=== PATIENT | female | born 1935 | race Caucasian/White ===

== ENCOUNTER 2016-10-13 17:46 | Emergency (ER) | payer MEDICARE, OTHER ==
[2016-10-13 18:27] VITALS: BP 159/85
[2016-10-13] MEDS ORDERED: Cyclobenzaprine 10 MG Tab PO ONE (18:37)
[2016-10-13] MEDS ORDERED: Acetaminophen/HYDROcodone 325-5 MG Tab PO ONE (18:37)
--- NOTE | 2016-10-13 18:54 | EDM.PDOC ---
ED HPI GENERAL MEDICAL PROBLEM - General Chief Complaint: Back Pain or Injury Stated Complaint: BACK PAIN Time Seen by Provider: 10/13/16 18:30 Source of Information: Reports: Patient History Limitations: Reports: No Limitations - History of Present Illness INITIAL COMMENTS - FREE TEXT/NARRATIVE: The patient presents with low back pain. She has a compression fracture of one of her lumbar spine. She saw Dr Dey and he put her in a back brace. She has been wearing the brace. She went to [place] to see family and the pain got much worse. She cannot even get out of her bath without help. She denies any numbness or weakness in her legs. She has no nausea or vomiting. She has no bowel or bladder problems. Onset: Gradual Duration: Week(s): Location: Reports: Back (Lumbar spine) Quality: Reports: Sharp Severity: Severe Improves with: Reports: None Worsens with: Reports: Movement Treatments COMPLIANCE PARALEGAL: Reports: Other (see below) Other Treatments COMPLIANCE PARALEGAL: tylenol and motrin Middle Back Pain Score (Numeric/FACES): 7 - Related Data Allergies Allergy/AdvReac Type Severity Reaction Status Date / Time No Known Allergies Allergy Verified 10/13/16 18:54 Home Meds: Home Meds Cyclobenzaprine [Flexeril] 10 mg PO TID PRN #20 tablet 10/13/16 [Rx] Hydrocodone/Acetaminophen [Hydrocodon-Acetaminophen 5-325] 1 - 2 each PO Q6HR PRN #20 tablet 10/13/16 [Rx] ED ROS GENERAL - Review of Systems Review Of Systems: See Below Constitutional: Reports: No Symptoms HEENT: Reports: No Symptoms Respiratory: Reports: No Symptoms Cardiovascular: Reports: No Symptoms Endocrine: Reports: No Symptoms GI/Abdominal: Reports: No Symptoms : Reports: No Symptoms Musculoskeletal: Reports: Back Pain (Lower) ED EXAM,LOWER BACK PAIN/INJURY - Physical Exam Exam: See Below Exam Limited By: No Limitations General Appearance: Alert, No Apparent Distress Ears: Normal External Exam Nose: Normal Inspection Head: Atraumatic, Normocephalic Neck: Normal Inspection Course - Vital Signs Last Recorded V/S: Last Vital Signs Temp 98.1 F 10/13/16 18:26 Pulse 70 10/13/16 18:26 Resp 20 10/13/16 18:26 BP 159/85 H 10/13/16 18:26 Pulse Ox 99 10/13/16 18:26 - Orders/Labs/Meds Meds: Medications Discontinued Medications Generic Name Dose Route Start Last Admin Trade Name Marcelino PRN Reason Stop Dose Admin Hydrocodone Bitart/Acetaminophen 2 tab 10/13/16 18:37 10/13/16 18:54 [place] 325-5 Mg PO 10/13/16 18:38 2 tab ONETIME ONE Administration Cyclobenzaprine HCl 10 mg 10/13/16 18:37 10/13/16 18:54 Flexeril PO 10/13/16 18:38 10 mg ONETIME ONE Administration - Re-Assessments/Exams Free Text/Narrative Re-Assessment/Exam: 10/13/16 19:30 I ordered hydrocodone 2 pills and flexeril. She feels better after that. I will give her a prescription for both. Departure - Departure Time of Disposition: 19:30 Disposition: Home, Self-Care 01 Condition: Good Clinical Impression: Compression fracture of lumbar vertebra Qualifiers: Encounter type: subsequent encounter Lumbar vertebra fracture level: L1 Fracture type: closed Fracture healing: with delayed healing Qualified Code(s): S32.010G - Wedge compression fracture of first lumbar vertebra, subsequent encounter for fracture with delayed healing - Discharge Information Prescriptions: Hydrocodone/Acetaminophen [Hydrocodon-Acetaminophen 5-325] 1 - 2 each PO Q6HR PRN #20 tablet PRN Reason: Pain Cyclobenzaprine [Flexeril] 10 mg PO TID PRN #20 tablet PRN Reason: Pain Referrals: Marsha Coronel MD [Primary Care Provider] - Forms: ED Department Discharge Additional Instructions: Take the hydrocodone and flexeril as needed for pain. Call Dr Yeung's office on Saturday and let him know how you are feeling. Please return if you are worse.
== END 2016-10-13 19:46 | disposition home or self-care (01) ==
LOC: JD.ED 17:46
DX: S32.010G Wedge compression fracture of first lumbar vertebra, subsequent encounter for fracture with delayed healing (principal); X58.XXXD Exposure to other specified factors, subsequent encounter
CPT/HCPCS: 99283; A9270

== ENCOUNTER 2020-01-02 11:32 | Emergency (ER) | payer MEDICARE, OTHER ==
[2020-01-02] MEDS ORDERED: Ketorolac 30 MG/ML SDV IM ONE (12:28)
--- NOTE | 2020-01-02 12:28 | EDM.PDOC ---
ED HPI GENERAL MEDICAL PROBLEM - General Chief Complaint: Back Pain or Injury Stated Complaint: BACK INJURY Time Seen by Provider: 01/02/20 12:12 Source of Information: Reports: Patient, RN Notes Reviewed History Limitations: Reports: No Limitations - History of Present Illness INITIAL COMMENTS - FREE TEXT/NARRATIVE: The patient is an 84-year-old female who presents to the ED for evaluation of her lower back pain. Patient notes she has been having low back pain for a good 3 weeks or more, she was seen on 25 December, and did get a medication prescription filled for [place] tablets by Dr. Ely for ongoing pain. She states that these medications make her feel very nauseated, and she does take them with food as well. She notes that when the pain is at its worst, she feels like she could be knocked over due to the pain. She states is very sharp intense pain, that comes and goes. She has been using a walker at home. She notes last night she did not sleep much due to the pain. She does have a history of multiple compression fractures with her nerve her spine, and she states she most recently had an MRI 2 weeks ago that showed new compression fractures. She is also complaining of urinary frequency, notes this has been going on for some time as well she is complaining of some suprapubic tenderness, but no fevers or chills, cough or shortness of breath. She is not on blood thinners at this time. 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 Lower Back Pain Score (Numeric/FACES): 8 - Related Data Allergies Allergy/AdvReac Type Severity Reaction Status Date / Time No Known Allergies Allergy Verified 09/28/18 10:25 Home Meds: Home Meds Hydrocodone/Acetaminophen [Hydrocodone-Acetamin 5-325 mg] 1 - 2 each PO Q6HR PRN #20 tablet 10/13/16 [Rx] FLUoxetine [PROzac] 20 mg PO DAILY 09/28/18 [History] Ferrous Sulfate 324 mg PO BIDMEALS #30 tab.ec 09/28/18 [Rx] atorvaSTATin [Lipitor] 10 mg PO DAILY 09/28/18 [History] Ibuprofen 600 mg PO Q6H #20 tablet 01/02/20 [Rx] Past Medical History HEENT History: Reports: Hard of Hearing, Impaired Vision Cardiovascular History: Reports: High Cholesterol Gastrointestinal History: Reports: Chronic Constipation Other Gastrointestinal History: use exlax prn Genitourinary History: Reports: Renal Calculus Musculoskeletal History: Reports: Back Pain, Chronic, Other (See Below) (multiple compression fractures in spine) Psychiatric History: Reports: Depression - Past Surgical History HEENT Surgical History: Reports: Cataract Surgery GI Surgical History: Reports: Appendectomy, Cholecystectomy Female Surgical History: Reports: Hysterectomy Social & Family History - Tobacco Use Tobacco Use Status *Q: Never Tobacco User - Caffeine Use Caffeine Use: Reports: Coffee, Tea - Recreational Drug Use Recreational Drug Use: No ED ROS GENERAL - Review of Systems Review Of Systems: Comprehensive ROS is negative, except as noted in HPI. ED EXAM,LOWER BACK PAIN/INJURY - Physical Exam Exam: See Below Exam Limited By: No Limitations General Appearance: Alert, WD/WN, No Apparent Distress Respiratory/Chest: No Respiratory Distress, Lungs Clear, Normal Breath Sounds, No Accessory Muscle Use, Chest Non-Tender Cardiovascular: Normal Peripheral Pulses, Regular Rate, Rhythm, No Murmur GI/Abdominal: Normal Bowel Sounds, Soft, No Distention, No Mass, Tender (mild suprapubic tenderness) Neurological: Alert, Normal Mood/Affect, Normal Dorsiflexion, Normal Plantar Flexion, No Motor/Sensory Deficits. No: Straight Leg Raise (L), Straight Leg Raise (R), Saddle Anesthesia Psychiatric: Normal Affect, Normal Mood Skin Exam: Warm, Dry, Intact, Normal Color, No Rash Course - Vital Signs Last Recorded V/S: Last Vital Signs Temp 98.1 F 01/02/20 12:06 Pulse 72 01/02/20 12:06 Resp 20 01/02/20 12:06 BP 140/62 01/02/20 12:06 Pulse Ox 98 01/02/20 12:06 - Orders/Labs/Meds Orders: Active Orders 24 hr Category Date Time Status Insert Lambert Catheter [Insert Urinary Catheter] [OM.PC] Care 01/02/20 12:30 Ordered Q24H Urinary Catheter Assessment [RC] ASDIRECTED Care 01/02/20 12:30 Active Labs: Laboratory Tests 01/02/20 Range/Units 12:40 Urine Color Yellow (Yellow) Urine Appearance Clear (Clear) Urine pH 6.0 (5.0-8.0) Ur Specific [place] 1.025 (1.005-1.030) Urine Protein Trace H (Negative) Urine Glucose (UA) Negative (Negative) Urine Ketones Trace H (Negative) Urine Occult Blood Negative (Negative) Urine Nitrite Negative (Negative) Urine Bilirubin Negative (Negative) Urine Urobilinogen 0.2 (0.2-1.0) Ur Leukocyte Esterase Negative (Negative) Urine RBC 0-5 (0-5) /hpf Urine WBC 0-5 (0-5) /hpf Ur Epithelial Cells 0-5 (0-5) /hpf Urine Bacteria Not seen (FEW) /hpf Urine Mucus Not seen (FEW) /hpf Meds: Medications Discontinued Medications Generic Name Dose Route Start Last Admin Trade Name Freq PRN Reason Stop Dose Admin Ketorolac Tromethamine 30 mg 01/02/20 12:28 01/02/20 12:45 Toradol IM 01/02/20 12:29 30 mg ONETIME ONE Administration - Re-Assessments/Exams Free Text/Narrative Re-Assessment/Exam: 01/02/20 12:30 Patient presents to the ED for her back pain. She is also complaining of urinary symptoms, we will get a quick cath urinary specimen to rule out the possibility of urinary tract infection that could be ongoing. I will give her a 30 mg IM injection of Toradol for initial pain management regarding her back pain. She does state that the hydrocodone seems to make her more nauseous and she cannot keep these down. 01/02/20 13:22 The patient notes that she has gotten some pain relief from the Toradol injection. Her urinalysis is negative for any infection. I will have nursing staff get her up at the bedside, to see how she is ambulating, plan is to hopefully send her home on some 600 mg tabs ibuprofen for further pain management as her body does not seem to do well with the [place] tablets that were provided to her. 01/02/20 13:44 Patient was at the bedside, and does appear to be walking quite a bit better, she states that it feels much better than it did when she walked in here. She will be discharged home with general recommendations and have her follow-up with her regular provider next week for reevaluation and further management. Departure - Departure Time of Disposition: 13:45 Disposition: Home, Self-Care 01 Condition: Good Clinical Impression: Low back pain Qualifiers: Chronicity: acute Back pain laterality: bilateral Sciatica presence: without sciatica Qualified Code(s): M54.5 - Low back pain - Discharge Information *PRESCRIPTION DRUG MONITORING PROGRAM REVIEWED*: No *COPY OF PRESCRIPTION DRUG MONITORING REPORT IN PATIENT AMANDA: No Prescriptions: Ibuprofen 600 mg PO Q6H #20 tablet Referrals: Marsha Coronel MD [Primary Care Provider] - Forms: ED Department Discharge Additional Instructions: You have been evaluated in the ED for your low back pain. Your urinalysis demonstrated no sign of acute infection. Please use ice/heat as tolerated to the affected area. You were given a script for ibuprofen 600mg q6 hrs for pain relief. Please do so until you have a tolerable level of pain with activity. Do not exceed 3200mg ibuprofen in a 24 hour time period. Recommend you follow-up with Dr. Ely, sometime next week, for reevaluation and to make sure that everything is getting better as expected. Please also make it known to her, that the [place] tablet she provided to you caused nausea and you are not able to tolerate these. Please return to ED if your symptoms should change or worsen. Sepsis Event Note (ED) - Evaluation Sepsis Screening Result: No Definite Risk - Focused Exam Vital Signs: Vital Signs Temp Pulse Resp BP Pulse Ox 01/02/20 12:06 98.1 F 72 20 140/62 98 - My Orders Last 24 Hours: My Active Orders 01/02/20 12:30 Insert Lambert Catheter [Insert Urinary Catheter] [OM.PC] Q24H Urinary Catheter Assessment [RC] ASDIRECTED - Assessment/Plan Last 24 Hours: My Active Orders 01/02/20 12:30 Insert Lambert Catheter [Insert Urinary Catheter] [OM.PC] Q24H Urinary Catheter Assessment [RC] ASDIRECTED
[2020-01-02 14:29] VITALS: BP 127/78; PULSE 88
== END 2020-01-02 14:25 | disposition home or self-care (01) ==
LOC: JD.ED 11:32
DX: M54.5 Low back pain (principal); R35.0 Frequency of micturition; R10.30 Lower abdominal pain, unspecified; E78.00 Pure hypercholesterolemia, unspecified; Z90.49 Acquired absence of other specified parts of digestive tract; Z90.710 Acquired absence of both cervix and uterus; Z79.899 Other long term (current) drug therapy
CPT/HCPCS: 81001; 96372; 99283; J1885

== ENCOUNTER 2020-01-12 16:05 | Emergency (ER) | payer MEDICARE, OTHER ==
[2020-01-12] MEDS ORDERED: Metoclopramide 10 MG/2 ML SDV IVPUSH ONE (16:29)
[2020-01-12] MEDS ORDERED: Dextrose 5%-0.9% NaCl 1,000 ML IV SCH ×3 (16:30→19:15)
--- NOTE | 2020-01-12 16:34 | EDM.PDOC ---
ED HPI GENERAL MEDICAL PROBLEM - General Chief Complaint: Back Pain or Injury Stated Complaint: VOMITING/DIARRHEA/BACK PAIN Time Seen by Provider: 01/12/20 16:28 Source of Information: Reports: Patient History Limitations: Reports: No Limitations - History of Present Illness INITIAL COMMENTS - FREE TEXT/NARRATIVE: 84-year-old female presents to the ED with complaints of recurrent nausea and vomiting starting yesterday. She states she has not kept anything down. Emesis is primarily bilious without any blood. Nausea comes in waves. Associated diffuse periumbilical abdominal cramping pain. She has a history of chronic constipation and continues to take laxatives on a daily basis. Current medications taken today likely did not stay down. Patient recently started a fe ntanyl 12 mcg/h patch which is on her left anterior lateral shoulder. She does not feel that the nausea started after the patch was placed. It has relieved a good deal of her back pain however. Pain apparently is due to multiple compression fractures and degenerative disc disease. Patient denies any associated fever or chills. Denies cough or sputum production. She does not know anybody with COVID-19 illness. Onset: Sudden Onset Date: 01/11/20 Duration: Hour(s):, Constant Location: Reports: Abdomen (She reports recurrent nausea and vomiting even water when she tries to drink.) Quality: Reports: Other (Intermittent cramping pain) Severity: Moderate (in the periumbilical area.) Improves with: Reports: None Worsens with: Reports: Eating Context: Denies: Activity, Exercise, Lifting, Sick Contact, Trauma, Other Associated Symptoms: Reports: Loss of Appetite, Malaise, Weakness. 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: Other (see below) Lower Back Pain Score (Numeric/FACES): 8 - Related Data Allergies Allergy/AdvReac Type Severity Reaction Status Date / Time No Known Allergies Allergy Verified 01/12/20 16:22 Home Meds: Home Meds FLUoxetine [PROzac] 20 mg PO DAILY 09/28/18 [History] Ferrous Sulfate 324 mg PO BIDMEALS #30 tab.ec 09/28/18 [Rx] atorvaSTATin [Lipitor] 10 mg PO DAILY 08/04/19 [History] Ibuprofen 600 mg PO Q6H #20 tablet 01/02/20 [Rx] fentaNYL [Duragesic] 1 patch TD Q72H 01/12/20 [History] traMADol [Ultram] 50 mg PO Q6H PRN 01/12/20 [History] Past Medical History HEENT History: Reports: Hard of Hearing, Impaired Vision Cardiovascular History: Reports: High Cholesterol Gastrointestinal History: Reports: Chronic Constipation Other Gastrointestinal History: use exlax prn Genitourinary History: Reports: Renal Calculus Musculoskeletal History: Reports: Back Pain, Chronic, Other (See Below) (multiple compression fractures in spine) Psychiatric History: Reports: Depression - Past Surgical History HEENT Surgical History: Reports: Cataract Surgery GI Surgical History: Reports: Appendectomy, Cholecystectomy Female Surgical History: Reports: Hysterectomy Social & Family History - Caffeine Use Caffeine Use: Reports: Coffee, Tea - Living Situation & Occupation Living situation: Reports: Occupation: Retired ED ROS GENERAL - Review of Systems Review Of Systems: See Below Constitutional: Reports: Malaise, Weakness, Fatigue, Decreased Appetite, Weight Loss. Denies: Fever, Chills HEENT: Reports: Glasses, Other (Does have a) Respiratory: Reports: Shortness of Breath ( bilateral mild macular de generation.). Denies: Wheezing, Pleuritic Chest Pain, Cough, Sputum Cardiovascular: Reports: Dyspnea on Exertion, Lightheadedness. Denies: Chest Pain, Blood Pressure Problem, Claudication, Edema, Orthopnea, Palpitations Endocrine: Reports: Fatigue GI/Abdominal: Reports: Decreased Appetite, Nausea, Vomiting (Since yesterday. Note this was the same time she started fentanyl patch 12 mcg/h. She is intolerant to oxycodone and hydrocodone tablets.) : Reports: Frequency, Incontinence (Both urge and stress components.) Musculoskeletal: Reports: Back Pain (Neck back pain with 3 identified compression fractures. Recent investigations by Dr. Gallo reveal that she has multiple myeloma by serum protein electrophoresis.) Skin: Reports: Dryness Neurological: Reports: Dizziness, Difficulty Walking (Walks with the aid of a walker.). Denies: Confusion Psychiatric: Reports: No Symptoms Hematologic/Lymphatic: Reports: No Symptoms Immunologic: Reports: No Symptoms ED EXAM, GI/ABD - Physical Exam Exam: See Below Exam Limited By: No Limitations General Appearance: Alert, No Apparent Distress, Other (Temperature is 36.2. Heart rate is 80 and sinus respiratory is 18 with O2 sats 100% room air BP 127/52.) Eyes: Bilateral: Normal Appearance (Blepharal pallor. No scleral icterus.) Throat/Mouth: Other Head: Atraumatic (Tongue is moderately dry and coated. No oropharyngeal infection), Normocephalic Neck: Normal Inspection, Supple, Non-Tender, Full Range of Motion. No: Lymphadenopathy (L), Lymphadenopathy (R) Respiratory/Chest: No Respiratory Distress, Normal Breath Sounds, No Accessory Muscle Use, Decreased Breath Sounds (Sounds are mildly diminished to the posterior 20% of lower lung [place].), Other (Mild kyphosis thoracic spine.). No: Respiratory Distress, Crackles, Rales, Wheezing Cardiovascular: Regular Rate, Rhythm, No Edema, No Gallop, No Murmur. No: Normal Peripheral Pulses GI/Abdominal Exam: Normal Bowel Sounds, Soft, Non-Tender, No Organomegaly, No Abnormal Bruit, No Mass, Pelvis Stable, Other (Full surgical scars. She appears to had a cholecystectomy appendectomy and total abdominal hysterectomy and she believes both ovaries were removed at the same time.). No: Guarding, Rigid, Rebound Back Exam: Decreased Range of Motion, Vertebral Tenderness (Will tenderness throughout the mid and lower thoracic spine), Other (Kyphosis thoracic spine.) Extremities: Normal Inspection, Other (Is slightly increased warmth to both medial joints of her knees and tenderness suggesting osteoarthritic change. Very limited internal and external rotation of either hip causing pain) Neurological: Alert ( combined with osteoarthritic change.), Oriented, CN II-XII Intact, Normal Cognition Psychiatric: Flat Affect Skin Exam: Warm, Dry, Intact, Pallor (Hiren pallid.) #1 Interpretation EKG Date: 01/12/20 Time: 16:52 Rhythm: NSR Rate (Beats/Min): 82 (Note there is a sinus pause appreciated in the long lead to limb with a heart rate of 47/min.) [place]: Normal P-Wave: Enlarged QRS: Other (Left atrial hypertrophy initial poor R wave progression from V1 to V4 consider possible old anteroseptal myocardial infarction. Decreased voltage limb leads) ST-T: Other (T wave flattening V2 nonspecific finding) QT: Normal EKG Interpretation Comments: Abnormal ECG Course - Vital Signs Last Recorded V/S: Last Vital Signs Temp 36.3 C 01/12/20 18:15 Pulse 81 01/12/20 18:18 Resp 16 01/12/20 18:18 BP 135/61 01/12/20 18:18 Pulse Ox 98 01/12/20 18:18 - Orders/Labs/Meds Orders: Active Orders 24 hr Category Date Time Status EKG Documentation Completion [RC] STAT Care 01/12/20 16:30 Active Insert Lambert Catheter [Insert Urinary Catheter] [OM.PC] Care 01/12/20 19:15 Ordered Q24H Insert Urinary Catheter [OM.PC] Stat Care 01/12/20 17:25 Ordered Urinary Catheter Assessment [RC] ASDIRECTED Care 01/12/20 17:29 Active Urinary Catheter Assessment [RC] ASDIRECTED Care 01/12/20 19:10 Ordered Abdomen 1V Flat [CR] Stat Exams 01/12/20 16:30 Taken Chest 1V Frontal [CR] Stat Exams 01/12/20 16:30 Taken CULTURE BLOOD [BC] Stat Lab 01/12/20 18:09 Received CULTURE BLOOD [BC] Stat Lab 01/12/20 18:19 Received CULTURE URINE [RM] Stat Lab 01/12/20 17:22 Received Dextrose 5%-0.9% NaCl [Dextrose 5%-Normal Saline] 1,000 Med 01/12/20 18:30 Active ml IV ASDIRECTED Dextrose 5%-0.9% NaCl [Dextrose 5%-Normal Saline] 1,000 Med 01/12/20 19:15 Ordered ml IV ASDIRECTED Blood Culture x2 Reflex Set [OM.PC] Stat Oth 01/12/20 17:41 Ordered Medication Orders Dextrose/Sodium Chloride (Dextrose 5%-Normal Saline) 1,000 mls @ 250 mls/hr IV ASDIRECTED CHIDI Dextrose/Sodium Chloride (Dextrose 5%-Normal Saline) 1,000 mls @ 999 mls/hr IV ASDIRECTED CHIDI Labs: Laboratory Tests 01/12/20 01/12/20 01/12/20 Range/Units 17:00 17:00 17:00 WBC 28.91 H (3.98-10.04) K/mm3 RBC 3.74 L (3.98-5.22) M/mm3 Hgb 11.1 L D (11.2-15.7) gm/dl Hct 31.5 L (34.1-44.9) % MCV 84.2 D (79.4-94.8) fl MCH 29.7 (25.6-32.2) pg MCHC 35.2 (32.2-35.5) g/dl RDW Std Deviation 41.8 (36.4-46.3) fL Plt Count 226 D (182-369) K/mm3 MPV 10.8 (9.4-12.3) fl Neut % (Auto) 86.2 H (34.0-71.1) % Lymph % (Auto) 5.1 L (19.3-51.7) % Dukes % (Auto) 5.0 (4.7-12.5) % Eos % (Auto) 0.2 L (0.7-5.8) Baso % (Auto) 0.1 (0.1-1.2) % Neut # (Auto) 24.92 H (1.56-6.13) K/mm3 Lymph # (Auto) 1.48 (1.18-3.74) K/mm3 Dukes # (Auto) 1.44 H (0.24-0.36) K/mm3 Eos # (Auto) 0.07 (0.04-0.36) K/mm3 Baso # (Auto) 0.03 (0.01-0.08) K/mm3 Manual Slide Review Abnormal smear ESR (0-20) mm/hr Sodium 127 L D (136-145) mEq/L Potassium 4.0 (3.5-5.1) mEq/L Chloride 93 L D (98-107) mEq/L Carbon Dioxide 14 L (21-32) mEq/L Anion Gap 24.0 H (5-15) BUN 142 H D (7-18) mg/dL Creatinine 6.4 H D (0.55-1.02) mg/dL Est Cr Clr Drug Dosing 4.78 mL/min Estimated GFR (MDRD) 6 (>60) mL/min BUN/Creatinine Ratio 22.2 H (14-18) Glucose 110 (83-115) mg/dL Calcium 6.9 L D (8.5-10.1) mg/dL Magnesium 2.1 (1.8-2.4) mg/dl Total Bilirubin 0.4 (0.2-1.0) mg/dL AST 29 (15-37) U/L ALT 21 (14-59) U/L Alkaline Phosphatase 203 H (46-116) U/L Troponin I < 0.017 (0.00-0.056) ng/mL C-Reactive Protein 25.6 H* (<1.0) mg/dL NT-Pro-B Natriuret Pep 2555 H (0-450) pg/mL Total Protein 6.8 (6.4-8.2) g/dl Albumin 2.4 L (3.4-5.0) g/dl Globulin 4.4 gm/dL Albumin/Globulin Ratio 0.6 L (1-2) Urine Color (Yellow) Urine Appearance (Clear) Urine pH (5.0-8.0) Ur Specific [place] (1.005-1.030) Urine Protein (Negative) Urine Glucose (UA) (Negative) Urine Ketones (Negative) Urine Occult Blood (Negative) Urine Nitrite (Negative) Urine Bilirubin (Negative) Urine Urobilinogen (0.2-1.0) Ur Leukocyte Esterase (Negative) Urine RBC (0-5) /hpf Urine WBC (0-5) /hpf Ur Squamous Epith Cells (0-5) /hpf Urine Bacteria (FEW) /hpf Urine Mucus (FEW) /hpf SARS-CoV-2 RNA (SHAHEED) (NEGATIVE) 01/12/20 01/12/20 01/12/20 Range/Units 17:00 17:22 17:40 WBC (3.98-10.04) K/mm3 RBC (3.98-5.22) M/mm3 Hgb (11.2-15.7) gm/dl Hct (34.1-44.9) % MCV (79.4-94.8) fl MCH (25.6-32.2) pg MCHC (32.2-35.5) g/dl RDW Std Deviation (36.4-46.3) fL Plt Count (182-369) K/mm3 MPV (9.4-12.3) fl Neut % (Auto) (34.0-71.1) % Lymph % (Auto) (19.3-51.7) % Dukes % (Auto) (4.7-12.5) % Eos % (Auto) (0.7-5.8) Baso % (Auto) (0.1-1.2) % Neut # (Auto) (1.56-6.13) K/mm3 Lymph # (Auto) (1.18-3.74) K/mm3 Dukes # (Auto) (0.24-0.36) K/mm3 Eos # (Auto) (0.04-0.36) K/mm3 Baso # (Auto) (0.01-0.08) K/mm3 Manual Slide Review ESR 74 H (0-20) mm/hr Sodium (136-145) mEq/L Potassium (3.5-5.1) mEq/L Chloride (98-107) mEq/L Carbon Dioxide (21-32) mEq/L Anion Gap (5-15) BUN (7-18) mg/dL Creatinine (0.55-1.02) mg/dL Est Cr Clr Drug Dosing mL/min Estimated GFR (MDRD) (>60) mL/min BUN/Creatinine Ratio (14-18) Glucose (83-115) mg/dL Calcium (8.5-10.1) mg/dL Magnesium (1.8-2.4) mg/dl Total Bilirubin (0.2-1.0) mg/dL AST (15-37) U/L ALT (14-59) U/L Alkaline Phosphatase (46-116) U/L Troponin I (0.00-0.056) ng/mL C-Reactive Protein (<1.0) mg/dL NT-Pro-B Natriuret Pep (0-450) pg/mL Total Protein (6.4-8.2) g/dl Albumin (3.4-5.0) g/dl Globulin gm/dL Albumin/Globulin Ratio (1-2) Urine Color Light yellow (Yellow) Urine Appearance Turbid H (Clear) Urine pH 5.5 (5.0-8.0) Ur Specific [place] 1.020 (1.005-1.030) Urine Protein 2+ H (Negative) Urine Glucose (UA) Negative (Negative) Urine Ketones Negative (Negative) Urine Occult Blood 2+ H (Negative) Urine Nitrite Negative (Negative) Urine Bilirubin Negative (Negative) Urine Urobilinogen 0.2 (0.2-1.0) Ur Leukocyte Esterase 3+ H (Negative) Urine RBC 0-5 (0-5) /hpf Urine WBC >100 H (0-5) /hpf Ur Squamous Epith Cells 0-5 (0-5) /hpf Urine Bacteria Moderate H (FEW) /hpf Urine Mucus Not seen (FEW) /hpf SARS-CoV-2 RNA (SHAHEED) Negative (NEGATIVE) Meds: Medications Generic Name Dose Route Start Last Admin Trade Name Freq PRN Reason Stop Dose Admin Dextrose/Sodium Chloride 1,000 mls @ 250 mls/hr 01/12/20 18:30 Dextrose 5%-Normal Saline IV ASDIRECTED CHIDI Dextrose/Sodium Chloride 1,000 mls @ 999 mls/hr 01/12/20 19:15 Dextrose 5%-Normal Saline IV ASDIRECTED CHIDI Discontinued Medications Generic Name Dose Route Start Last Admin Trade Name Freq PRN Reason Stop Dose Admin Dextrose/Sodium Chloride 1,000 mls @ 500 mls/hr 01/12/20 16:30 01/12/20 17:06 Dextrose 5%-Normal Saline IV 500 mls/hr ASDIRECTED CHIDI Administration Piperacillin Sod/Tazobactam 100 mls @ 200 mls/hr 01/12/20 17:42 01/12/20 18:11 Sod 4.5 gm/ Sodium Chloride IV 01/12/20 18:11 Not Given ONETIME ONE Linezolid 600 mg/ Premix 300 mls @ 300 mls/hr 01/12/20 18:01 01/12/20 18:14 IV 01/12/20 19:00 300 mls/hr ONETIME ONE Administration Metoclopramide HCl 5 mg 01/12/20 16:29 01/12/20 17:04 Reglan IVPUSH 01/12/20 16:30 5 mg ONETIME ONE Administration - Radiology Interpretation Free Text/Narrative:: 84-year-old female presents to the ED with reports of recurrent nausea and vomiting starting yesterday afternoon. She has been able to keep down any of her medications. Dr. Shepherd called and states that last week test came back indicating that she is positive for diagnosis of multiple myeloma. She has 3 bad compression fractures in her thoracic spine which have been very hard to control pain for. She was recently started on a fentanyl 12 mcg/h patch which is on her left lateral shoulder. It is unclear whether this could be contributed the nausea and vomiting. Apparently her renal function is deteriorating fairly rapidly suggesting myeloma kidney. Dr. Cano will fax over the results that she has from last Saturday for comparison purposes today. Patient does report that her back pain is 50 to 70% improved with the fentanyl patch. It is unclear how much constipation she is experiencing. Plan IV will be D5 normal saline at 500 mils per hour as she appears to be volume depleted. She will have a chest x-ray and a 1 view of her abdomen performed for imaging studies. Routine labs to include ionized calcium levels. Given Reglan 5 mg IV for nausea relief. - Re-Assessments/Exams Free Text/Narrative Re-Assessment/Exam: 01/12/20 17:39 White blood cell count is markedly elevated at 28.91 with a left shift of 86.2% neutrophils. Hemoglobin is low at 11.1 with hematocrit of 31.5. Platelet count is 226,000. The manual slide review is pending. Nurses report that that urine the obtained was very cloudy and foul-smelling. I am going to order blood cultures x2. She will then be given 4.5 g of piperacillin tazobactam. Portable chest x-ray reveals lung [place] to be clear. Cardiac silhouette is normal. No pneumothorax no pleural effusion. X-ray of the abdomen reveals diffuse chondrocalcinosis of the lower 6 ribs bilaterally. Normal amount of gas throughout the colon with small amount of stool in the rectal vault but not severely constipated. Looking back in the chart in early November of this year her creatinine was 0.8 with a BUN of 22. Deterioration of renal function is occurred over the last 6 weeks 01/12/20 18:00 The slide reveals marked toxic granulation pattern. No comment on bandemia. Sodium is low at 127 with a potassium of 4.0 chloride 93 with a bicarb of 14 anion gap is 24.0 BUN is 142 with a creatinine of 6.4 indicating significant renal insufficiency. GFR is down to 6. 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 Troponin I is less than 0.017. CRP is pending BNP is 2555 total protein is 6.8 with an albumin fraction of 2.4 urine shows turbid color 2+ proteinuria 2+ occult blood 3+ leukocyte esterase 0-5 RBCs and greater than 100 WBCs per high-power field with moderate bacteria seen. Urine culture will be ordered. My plan was to start her on Zosyn but with her compromised renal function it would be changed to Zyvox- center milligrams IV since the dose does not have to be altered for renal failure. 01/12/20 19:00: I was able to speak through the 1 call nurse at [facility] in [place] and there is a bed available for Mrs. Castillo at that institution. I spoke with on-call live games dealer agreed that she needs to come their way as there is a good chance she will require dialysis at least on a temporary basis. Dr. Chun hospitalist will be the accepting physician. Also spoken with the patient's [id number] Hayde and made her aware of the problems that have evolved and treatment plan. Departure - Departure Time of Disposition: 19:31 Disposition: DC/Tfer to Acute Hospital 02 Condition: Serious Clinical Impression: Chronic renal insufficiency, stage V, Neutrophilic leukocytosis, Upper urinary tract infection, Congestive heart failure, Hyponatremia Multiple myeloma Qualifiers: Multiple myeloma remission status: not in remission Qualified Code(s): C90.00 - Multiple myeloma not having achieved remission Vertebral compression fracture Qualifiers: Encounter type: initial encounter Thoracic vertebra fracture level: unspecified thoracic vertebra - Discharge Information *PRESCRIPTION DRUG MONITORING PROGRAM REVIEWED*: Not Applicable *COPY OF PRESCRIPTION DRUG MONITORING REPORT IN PATIENT AMANDA: Not Applicable Referrals: Marsha Coronel MD [Primary Care Provider] - Forms: ED Department Discharge Additional Instructions: Patient sent to [facility] in [place] for hematology and nephrology consultations in regards to new diagnosis of multiple myeloma. She is in stage V renal insufficiency and may well require dialysis. She may well have acute tubular necrosis at this time. She will be challenged with fluids in route to [place] and then Lasix challenge as well. Sepsis Event Note (ED) - Focused Exam Vital Signs: Vital Signs Temp Pulse Resp BP Pulse Ox 01/12/20 18:18 81 16 135/61 98 01/12/20 18:15 36.3 C 01/12/20 16:26 36.2 C 80 18 127/52 L 100 - My Orders Last 24 Hours: My Active Orders 01/12/20 16:30 EKG Documentation Completion [RC] STAT Abdomen 1V Flat [CR] Stat Chest 1V Frontal [CR] Stat 01/12/20 17:22 CULTURE URINE [RM] Stat 01/12/20 17:25 Insert Urinary Catheter [OM.PC] Stat 01/12/20 17:29 Urinary Catheter Assessment [RC] ASDIRECTED 01/12/20 17:41 Blood Culture x2 Reflex Set [OM.PC] Stat 01/12/20 18:09 CULTURE BLOOD [BC] Stat 01/12/20 18:19 CULTURE BLOOD [BC] Stat 01/12/20 18:30 Dextrose 5%-0.9% NaCl [Dextrose 5%-Normal Saline] 1,000 ml IV ASDIRECTED 01/12/20 19:10 Urinary Catheter Assessment [RC] ASDIRECTED 01/12/20 19:15 Insert Lambert Catheter [Insert Urinary Catheter] [OM.PC] Q24H Dextrose 5%-0.9% NaCl [Dextrose 5%-Normal Saline] 1,000 ml IV ASDIRECTED - Assessment/Plan Last 24 Hours: My Active Orders 01/12/20 16:30 EKG Documentation Completion [RC] STAT Abdomen 1V Flat [CR] Stat Chest 1V Frontal [CR] Stat 01/12/20 17:22 CULTURE URINE [RM] Stat 01/12/20 17:25 Insert Urinary Catheter [OM.PC] Stat 01/12/20 17:29 Urinary Catheter Assessment [RC] ASDIRECTED 01/12/20 17:41 Blood Culture x2 Reflex Set [OM.PC] Stat 01/12/20 18:09 CULTURE BLOOD [BC] Stat 01/12/20 18:19 CULTURE BLOOD [BC] Stat 01/12/20 18:30 Dextrose 5%-0.9% NaCl [Dextrose 5%-Normal Saline] 1,000 ml IV ASDIRECTED 01/12/20 19:10 Urinary Catheter Assessment [RC] ASDIRECTED 01/12/20 19:15 Insert Lambert Catheter [Insert Urinary Catheter] [OM.PC] Q24H Dextrose 5%-0.9% NaCl [Dextrose 5%-Normal Saline] 1,000 ml IV ASDIRECTED
[2020-01-12] MEDS ORDERED: Piperacillin/Tazobactam 4.5 GM in Sodium Chloride 0.9% 100 ML IV ONE (17:42)
[2020-01-12] MEDS ORDERED: Linezolid 600 MG in Premix Bag 1 BAG IV ONE (18:01)
[2020-01-12 18:23] VITALS: BP 135/61; PULSE 81
--- NOTE | 2020-01-12 19:32 | CR ---
PROCEDURE INFORMATION: Exam: XR Abdomen, 1 View Exam date and time: 01/12/2020 5:36 PM Age: 84 years old Clinical indication: Abdominal pain; Patient HX: Epigastric pain, nausea/vomiting TECHNIQUE: Imaging protocol: XR of the abdomen. Views: Frontal supine view of the abdomen. 1 View. COMPARISON: No relevant prior studies available. FINDINGS: Gastrointestinal tract: Normal. No bowel dilation. Bones/joints: Diffuse osteopenia. There are probably multiple osteoporotic compression fractures within the field of view. IMPRESSION: Nonobstructive bowel gas pattern. Thank you for allowing us to participate in the care of your patient. Dictated and Authenticated by: Nato Floyd MD 01/12/2020 7:30 PM Central Time ([place] & [place]) HE[place]ERT
--- NOTE | 2020-01-12 19:34 | CR ---
PROCEDURE INFORMATION: Exam: XR Chest, 1 View Exam date and time: 01/12/2020 5:38 PM Age: 84 years old Clinical indication: Pain; Other: Epigastric; Patient HX: Nausea/vomiting TECHNIQUE: Imaging protocol: XR of the chest Views: 1 view. COMPARISON: OT Chest 1V Frontal 09/28/2018 12:25 PM FINDINGS: Lungs: No suspicious pulmonary nodules or areas of lung consolidation. Pleural space: Costophrenic angles are sharp. No pneumothorax. Heart/Mediastinum: Unremarkable. No cardiomegaly. Bones/joints: Age appropriate. IMPRESSION: 1. No active disease of the chest. 2. Lungs the same or improved compared with September 28, 2018. Thank you for allowing us to participate in the care of your patient. Dictated and Authenticated by: Nato Floyd MD 01/12/2020 7:31 PM Central Time ([place] & [place]) [place]
[2020-01-12] MEDS ORDERED: Lactated Ringers 1,000 ML ONE (19:37)
[2020-01-12] MEDS ORDERED: Lactated Ringers 1,000 ML IV SCH (20:30)
== END 2020-01-12 19:45 ==
LOC: JD.ED 16:05
DX: S22.009A Unspecified fracture of unspecified thoracic vertebra, initial encounter for closed fracture (principal); C90.00 Multiple myeloma not having achieved remission; D72.829 Elevated white blood cell count, unspecified; N39.0 Urinary tract infection, site not specified; N18.5 Chronic kidney disease, stage 5; I50.9 Heart failure, unspecified; E87.1 Hypo-osmolality and hyponatremia; E78.00 Pure hypercholesterolemia, unspecified; F32.9 Major depressive disorder, single episode, unspecified; Z79.899 Other long term (current) drug therapy; Z20.828 Contact with and (suspected) exposure to other viral communicable diseases; X58.XXXA Exposure to other specified factors, initial encounter
CPT/HCPCS: 36415; 51702; 71045; 74018; 80053; 81001; 83735; 83880; 84484; 85025; 85652; 86140; 87040; 87086; 87088; 87186; 93005; 96365; 96375; 99285; J2020; J2765; J7042; J7120; U0002; 87077; 93010

== ENCOUNTER 2020-03-22 15:00 | Inpatient (IN) | payer MEDICARE, OTHER ==
[2020-03-22] MEDS ORDERED: Sodium Chloride 0.9% 10 ML Syringe FLUSH PRN (15:37)
[2020-03-22] MEDS ORDERED: Sodium Chloride 0.9% 1,000 ML IV SCH (15:45)
--- NOTE | 2020-03-22 16:03 | EDM.PDOC ---
ED HPI GENERAL MEDICAL PROBLEM - General Chief Complaint: Back Pain or Injury Stated Complaint: [facility] Time Seen by Provider: 03/22/20 15:09 Source of Information: Reports: Patient, Family (daughter), RN Notes Reviewed - History of Present Illness INITIAL COMMENTS - FREE TEXT/NARRATIVE: 84 yr old female comes in by ambulance with generalized weakness, low back pain, has fallen twice in the last 15 hrs. She first fell about 1 Am going to or from the bathroom. She spent about 4 to 5 hours on the floor, was found by a family member around 5:30 this morning. She than fell again around noon today, spent several more hours on the floor until once again found by a family member. She has hx of recent UTI just started on amoxicillin 2 days ago after clinic visit about 4 days ago. She has hx of chronic low back pain, previous compression fractures, hx renal insufficiency and also hx of multiple myeloma diagnosed about 2 months ago. Middle Back Pain Score (Numeric/FACES): 7 - Related Data Allergies Allergy/AdvReac Type Severity Reaction Status Date / Time No Known Allergies Allergy Verified 03/22/20 15:10 Home Meds: Home Meds atorvaSTATin [Lipitor] 10 mg PO BEDTIME 09/28/18 [History] Allopurinol [Zyloprim] 100 mg PO BID 03/22/20 [History] Amoxicillin 250 mg PO ASDIRECTED 03/22/20 [History] Aspirin [Halfprin] 81 mg PO DAILY 03/22/20 [History] Calcitonin ([place]) [Miacalcin Nasal [place]] 1 spray NS DAILY 03/22/20 [History] Calcium Carbonate [Calcium] 500 mg PO DAILY 03/22/20 [History] Ergocalciferol (Vitamin D2) [Vitamin D2] 1.25 mg PO WEEKLY 03/22/20 [History] Levothyroxine [Synthroid] 50 mcg PO DAILY 03/22/20 [History] Past Medical History HEENT History: Reports: Hard of Hearing, Impaired Vision Cardiovascular History: Reports: High Cholesterol Gastrointestinal History: Reports: Chronic Constipation Other Gastrointestinal History: use exlax prn Genitourinary History: Reports: Renal Calculus Musculoskeletal History: Reports: Back Pain, Chronic, Other (See Below) Neurological History: Reports: None Psychiatric History: Reports: Depression Hematologic History: Reports: None Immunologic History: Reports: None Oncologic (Cancer) History: Reports: None Dermatologic History: Reports: None - Infectious Disease History Infectious Disease History: Reports: Chicken Pox, Influenza, Measles, Mumps, Rubella - Past Surgical History HEENT Surgical History: Reports: Cataract Surgery Other HEENT Surgeries/Procedures: [facility] Surgical History: Reports: Appendectomy, Cholecystectomy Female Surgical History: Reports: Hysterectomy Social & Family History - Family History Family Medical History: No Pertinent Family History - Tobacco Use Tobacco Use Status *Q: Never Tobacco User - Caffeine Use Caffeine Use: Reports: None - Recreational Drug Use Recreational Drug Use: No - Living Situation & Occupation Living situation: Reports: Occupation: Retired ED ROS GENERAL - Review of Systems Review Of Systems: See Below Constitutional: Denies: Fever, Chills HEENT: Reports: No Symptoms Respiratory: Denies: Shortness of Breath, Cough Cardiovascular: Denies: Chest Pain Endocrine: Reports: Fatigue GI/Abdominal: Reports: Diarrhea (about a week ago, gone). Denies: Abdominal Pain, Nausea, Vomiting : Reports: No Symptoms Musculoskeletal: Reports: Back Pain (low back, chronic) Skin: Denies: Rash Neurological: Reports: Difficulty Walking, Weakness (generalized). Denies: Trouble Speaking ED EXAM, GENERAL - Physical Exam Exam: See Below Exam Limited By: Other (mildly confused, able to answer most questions appropriately) General Appearance: Alert, No Apparent Distress (at rest) Eye Exam: Bilateral Eye: PERRL Ears: Normal External Exam Nose: Normal Inspection Head: Atraumatic Neck: Supple, Non-Tender Respiratory/Chest: No Respiratory Distress, Lungs Clear, Normal Breath Sounds Cardiovascular: Regular Rate, Rhythm GI/Abdominal: Soft, Non-Tender Back Exam: Vertebral Tenderness (mild to moderate tenderness low mid back, no visible swelling or bruising) Extremities: No: Pedal Edema, Leg Pain Neurological: Alert, No Motor/Sensory Deficits, Other (mildly confused but does answer most questions appropriately) Skin Exam: Warm, Dry, Normal Color Course - Vital Signs Last Recorded V/S: Last Vital Signs Temp 97 F 03/22/20 15:05 Pulse 96 03/22/20 15:05 Resp 18 03/22/20 15:05 BP 153/57 H 03/22/20 15:05 Pulse Ox 98 03/22/20 15:05 - Orders/Labs/Meds Orders: Active Orders 24 hr Category Date Time Status Peripheral IV Care [RC] . DIRECTED Care 03/22/20 15:37 Active CULTURE URINE [RM] Stat Lab 03/22/20 16:00 Received Sodium Chloride 0.9% [Normal Saline] 1,000 ml Med 03/22/20 15:45 Active IV ONETIME Sodium Chloride 0.9% [Saline Flush] Med 03/22/20 15:37 Active 10 ml FLUSH ASDIRECTED PRN Peripheral IV Insertion Adult [OM.PC] Stat Oth 03/22/20 15:37 Ordered Medication Orders Sodium Chloride (Normal Saline) 1,000 mls @ 999 mls/hr IV ONETIME CHIDI Last Admin: 03/22/20 15:44 Dose: 999 mls/hr Documented by: VEE Sodium Chloride (Saline Flush) 10 ml FLUSH ASDIRECTED PRN PRN Reason: Keep Vein Open Last Admin: 03/22/20 15:44 Dose: 10 ml Documented by: VEE Labs: Laboratory Tests 03/22/20 03/22/20 03/22/20 Range/Units 15:50 15:50 15:50 WBC 9.53 (3.98-10.04) K/mm3 RBC 3.52 L (3.98-5.22) M/mm3 Hgb 10.3 L (11.2-15.7) gm/dl Hct 32.4 L (34.1-44.9) % MCV 92.0 D (79.4-94.8) fl MCH 29.3 (25.6-32.2) pg MCHC 31.8 L (32.2-35.5) g/dl RDW Std Deviation 49.8 H (36.4-46.3) fL Plt Count 384 H D (182-369) K/mm3 MPV 9.8 (9.4-12.3) fl Neut % (Auto) 64.4 (34.0-71.1) % Lymph % (Auto) 25.8 (19.3-51.7) % [place] % (Auto) 7.9 (4.7-12.5) % Eos % (Auto) 0.2 L (0.7-5.8) Baso % (Auto) 0.3 (0.1-1.2) % Neut # (Auto) 6.14 H (1.56-6.13) K/mm3 Lymph # (Auto) 2.46 (1.18-3.74) K/mm3 [place]Brien # (Auto) 0.75 H (0.24-0.36) K/mm3 Eos # (Auto) 0.02 L (0.04-0.36) K/mm3 Baso # (Auto) 0.03 (0.01-0.08) K/mm3 Manual Slide Review Abnormal smear Sodium 140 D (136-145) mEq/L Potassium 4.1 (3.5-5.1) mEq/L Chloride 104 (98-107) mEq/L Carbon Dioxide 23 (21-32) mEq/L Anion Gap 17.1 H (5-15) BUN 37 H D (7-18) mg/dL Creatinine 1.6 H D (0.55-1.02) mg/dL Est Cr Clr Drug Dosing 20.10 mL/min Estimated GFR (MDRD) 31 (>60) mL/min BUN/Creatinine Ratio 23.1 H (14-18) Glucose 103 (83-115) mg/dL Calcium 9.1 D (8.5-10.1) mg/dL Total Bilirubin 0.3 (0.2-1.0) mg/dL AST 46 H (15-37) U/L ALT 34 (14-59) U/L Alkaline Phosphatase 156 H (46-116) U/L Creatine Kinase (26-192) U/L C-Reactive Protein 24.3 H* (<1.0) mg/dL Total Protein 7.5 (6.4-8.2) g/dl Albumin 2.6 L (3.4-5.0) g/dl Globulin 4.9 gm/dL Albumin/Globulin Ratio 0.5 L (1-2) TSH 3rd Generation (0.358-3.74) uIU/mL Urine Color (Yellow) Urine Appearance (Clear) Urine pH (5.0-8.0) Ur Specific [place] (1.005-1.030) Urine Protein (Negative) Urine Glucose (UA) (Negative) Urine Ketones (Negative) Urine Occult Blood (Negative) Urine Nitrite (Negative) Urine Bilirubin (Negative) Urine Urobilinogen (0.2-1.0) Ur Leukocyte Esterase (Negative) Urine RBC (0-5) /hpf Urine WBC (0-5) /hpf Ur Squamous Epith Cells (0-5) /hpf Urine Bacteria (FEW) /hpf Urine Mucus (FEW) /hpf SARS-CoV-2 RNA (SHAHEED) (NEGATIVE) 03/22/20 03/22/20 03/22/20 Range/Units 15:50 15:50 16:06 WBC (3.98-10.04) K/mm3 RBC (3.98-5.22) M/mm3 Hgb (11.2-15.7) gm/dl Hct (34.1-44.9) % MCV (79.4-94.8) fl MCH (25.6-32.2) pg MCHC (32.2-35.5) g/dl RDW Std Deviation (36.4-46.3) fL Plt Count (182-369) K/mm3 MPV (9.4-12.3) fl Neut % (Auto) (34.0-71.1) % Lymph % (Auto) (19.3-51.7) % [place] % (Auto) (4.7-12.5) % Eos % (Auto) (0.7-5.8) Baso % (Auto) (0.1-1.2) % Neut # (Auto) (1.56-6.13) K/mm3 Lymph # (Auto) (1.18-3.74) K/mm3 [place]Brien # (Auto) (0.24-0.36) K/mm3 Eos # (Auto) (0.04-0.36) K/mm3 Baso # (Auto) (0.01-0.08) K/mm3 Manual Slide Review Sodium (136-145) mEq/L Potassium (3.5-5.1) mEq/L Chloride (98-107) mEq/L Carbon Dioxide (21-32) mEq/L Anion Gap (5-15) BUN (7-18) mg/dL Creatinine (0.55-1.02) mg/dL Est Cr Clr Drug Dosing mL/min Estimated GFR (MDRD) (>60) mL/min BUN/Creatinine Ratio (14-18) Glucose (83-115) mg/dL Calcium (8.5-10.1) mg/dL Total Bilirubin (0.2-1.0) mg/dL AST (15-37) U/L ALT (14-59) U/L Alkaline Phosphatase (46-116) U/L Creatine Kinase 104 (26-192) U/L C-Reactive Protein (<1.0) mg/dL Total Protein (6.4-8.2) g/dl Albumin (3.4-5.0) g/dl Globulin gm/dL Albumin/Globulin Ratio (1-2) TSH 3rd Generation 1.913 (0.358-3.74) uIU/mL Urine Color Yellow (Yellow) Urine Appearance Clear (Clear) Urine pH 6.5 (5.0-8.0) Ur Specific [place] 1.020 (1.005-1.030) Urine Protein 2+ H (Negative) Urine Glucose (UA) Negative (Negative) Urine Ketones Negative (Negative) Urine Occult Blood Negative (Negative) Urine Nitrite Negative (Negative) Urine Bilirubin Negative (Negative) Urine Urobilinogen 0.2 (0.2-1.0) Ur Leukocyte Esterase 1+ H (Negative) Urine RBC 0-5 (0-5) /hpf Urine WBC 20-30 H (0-5) /hpf Ur Squamous Epith Cells 0-5 (0-5) /hpf Urine Bacteria Few (FEW) /hpf Urine Mucus Few (FEW) /hpf SARS-CoV-2 RNA (SHAHEED) (NEGATIVE) 03/22/20 Range/Units 16:45 WBC (3.98-10.04) K/mm3 RBC (3.98-5.22) M/mm3 Hgb (11.2-15.7) gm/dl Hct (34.1-44.9) % MCV (79.4-94.8) fl MCH (25.6-32.2) pg MCHC (32.2-35.5) g/dl RDW Std Deviation (36.4-46.3) fL Plt Count (182-369) K/mm3 MPV (9.4-12.3) fl Neut % (Auto) (34.0-71.1) % Lymph % (Auto) (19.3-51.7) % [place] % (Auto) (4.7-12.5) % Eos % (Auto) (0.7-5.8) Baso % (Auto) (0.1-1.2) % Neut # (Auto) (1.56-6.13) K/mm3 Lymph # (Auto) (1.18-3.74) K/mm3 [place] # (Auto) (0.24-0.36) K/mm3 Eos # (Auto) (0.04-0.36) K/mm3 Baso # (Auto) (0.01-0.08) K/mm3 Manual Slide Review Sodium (136-145) mEq/L Potassium (3.5-5.1) mEq/L Chloride (98-107) mEq/L Carbon Dioxide (21-32) mEq/L Anion Gap (5-15) BUN (7-18) mg/dL Creatinine (0.55-1.02) mg/dL Est Cr Clr Drug Dosing mL/min Estimated GFR (MDRD) (>60) mL/min BUN/Creatinine Ratio (14-18) Glucose (83-115) mg/dL Calcium (8.5-10.1) mg/dL Total Bilirubin (0.2-1.0) mg/dL AST (15-37) U/L ALT (14-59) U/L Alkaline Phosphatase (46-116) U/L Creatine Kinase (26-192) U/L C-Reactive Protein (<1.0) mg/dL Total Protein (6.4-8.2) g/dl Albumin (3.4-5.0) g/dl Globulin gm/dL Albumin/Globulin Ratio (1-2) TSH 3rd Generation (0.358-3.74) uIU/mL Urine Color (Yellow) Urine Appearance (Clear) Urine pH (5.0-8.0) Ur Specific [place] (1.005-1.030) Urine Protein (Negative) Urine Glucose (UA) (Negative) Urine Ketones (Negative) Urine Occult Blood (Negative) Urine Nitrite (Negative) Urine Bilirubin (Negative) Urine Urobilinogen (0.2-1.0) Ur Leukocyte Esterase (Negative) Urine RBC (0-5) /hpf Urine WBC (0-5) /hpf Ur Squamous Epith Cells (0-5) /hpf Urine Bacteria (FEW) /hpf Urine Mucus (FEW) /hpf SARS-CoV-2 RNA (SHAHEED) Negative (NEGATIVE) Meds: Medications Generic Name Dose Route Start Last Admin Trade Name Freq PRN Reason Stop Dose Admin Sodium Chloride 1,000 mls @ 999 mls/hr 03/22/20 15:45 03/22/20 15:44 Normal Saline IV 999 mls/hr ONETIME CHIDI Administration Sodium Chloride 10 ml 03/22/20 15:37 03/22/20 15:44 Saline Flush FLUSH 10 ml ASDIRECTED PRN Administration Keep Vein Open Discontinued Medications Generic Name Dose Route Start Last Admin Trade Name Sebasq PRN Reason Stop Dose Admin Ceftriaxone Sodium 1 gm/ 100 mls @ 200 mls/hr 03/22/20 16:45 03/22/20 17:00 Sodium Chloride IV 03/22/20 17:14 200 mls/hr ONETIME ONE Administration - Re-Assessments/Exams Free Text/Narrative Re-Assessment/Exam: 03/22/20 17:37 Pt does have UTI, her lumbar spine shows old compression deformities of L2,L3,L4. Slight endplate concavities within L5 and L3 which are an interval change from prior study. See Radiology report for details. Ua does show UTI. She does not have much pain at rest but does have quite severe discomfort with motion. She has fallen twice in 15 hrs, lives alone, obviously continued fall risk. Not a candidate to go home at this time. Will admit to med surg. Have given 1 liter NS, have given rocephin 1 gram IV. Departure - Departure Time of Disposition: 17:10 Disposition: Admitted As Inpatient 67 Condition: Serious Clinical Impression: Difficulty walking UTI (urinary tract infection) Qualifiers: Urinary tract infection type: acute cystitis Hematuria presence: without hematuria Qualified Code(s): N30.00 - Acute cystitis without hematuria Fall Qualifiers: Encounter type: initial encounter Qualified Code(s): W19.XXXA - Unspecified f all, initial encounter Low back pain Qualifiers: Chronicity: acute Back pain laterality: bilateral Sciatica presence: without sciatica Qualified Code(s): M54.5 - Low back pain - Discharge Information Referrals: Juan Us MD [Primary Care Provider] - Forms: ED Department Discharge Sepsis Event Note (ED) - Evaluation Sepsis Screening Result: No Definite Risk - Focused Exam Vital Signs: Vital Signs Temp Pulse Resp BP Pulse Ox 03/22/20 15:05 97 F 96 18 153/57 H 98 ED Communication - Discussed Case With (1) Discussed Case With (1): Admitting Provider (Dr Lindsey, decision to admit at about 17:10.) - My Orders Last 24 Hours: My Active Orders 03/22/20 15:37 Peripheral IV Care [RC] . DIRECTED Sodium Chloride 0.9% [Saline Flush] 10 ml FLUSH ASDIRECTED PRN Peripheral IV Insertion Adult [OM.PC] Stat 03/22/20 15:45 Sodium Chloride 0.9% [Normal Saline] 1,000 ml IV ONETIME 03/22/20 16:00 CULTURE URINE [RM] Stat - Assessment/Plan Last 24 Hours: My Active Orders 03/22/20 15:37 Peripheral IV Care [RC] . DIRECTED Sodium Chloride 0.9% [Saline Flush] 10 ml FLUSH ASDIRECTED PRN Peripheral IV Insertion Adult [OM.PC] Stat 03/22/20 15:45 Sodium Chloride 0.9% [Normal Saline] 1,000 ml IV ONETIME 03/22/20 16:00 CULTURE URINE [RM] Stat
--- NOTE | 2020-03-22 16:39 | CR ---
Lumbar spine: AP, lateral and coned down lateral junction were obtained. Prior lumbar spine exam of 09/28/18. Increased compression deformities are seen superiorly within L5. Compression deformity noted within L4 which is stable. Endplate concavities are seen superiorly and inferiorly within L3 which are interval change from prior study. Stable compression deformities of L2 and L3 are noted. Degenerative disc calcification is seen more superiorly. Scattered endplate osteophytes are noted. Bony structures are osteopenic. Impression: 1. Slight endplate concavities within L5, and L3 which are an interval change from prior study. These are otherwise nonspecific regarding age. 2. Other compression deformities are stable. 3. Degenerative change is noted with spine which is stable. Diagnostic code #3
[2020-03-22] MEDS ORDERED: cefTRIAXone 1 GM in Sodium Chloride 0.9% 100 ML IV ONE (16:45)
[2020-03-22] MEDS ORDERED: Ondansetron 4 MG Tab.DIS PO PRN (17:58)
[2020-03-22] MEDS ORDERED: Docusate Sodium 100 MG Cap PO PRN (17:58)
[2020-03-22] MEDS ORDERED: Temazepam 7.5 MG Cap PO PRN (17:58)
--- NOTE | 2020-03-22 18:04 | PCM.HP.2 ---
H&P History of Present Illness - General Date of Service: 03/22/20 Admit Problem/Dx: Admission Diagnosis/Problem Admission Diagnosis/Problem Urinary tract infection Source of Information: Patient, Family History Limitations: Reports: No Limitations - History of Present Illness Initial Comments - Free Text/Narative: Patient is an 84-year-old lady who has presented to the emergency department with a complaint of severe back pain. The patient reports that she has also had some dizziness and lightheadedness. She does have dysuria. She was also found to have a urinary tract infection. The patient also had been incompletely treated as an outpatient for urinary tract infection with the use of amoxicillin. The patient has denied fever or chills however she did have a f ever in the emergency department. The patient also says that she has been having difficulty walking. She currently lives alone but has family nearby. The patient has been in her usual state of health. Patient has been taking medication for her hypothyroidism as well as dyslipidemia and for her o steoporosis. Onset of Symptoms: Reports: Gradual Duration of Symptoms: Reports: Day(s): Location: Reports: Generalized Quality: Reports: Ache, Burning Severity: Severe Improves with: Reports: Rest Worsens with: Reports: Movement Context: Reports: Trauma (Falls) Middle Back Pain Score (Numeric/FACES): 7 - Related Data Allergies/Adverse Reactions: Allergies Allergy/AdvReac Type Severity Reaction Status Date / Time No Known Allergies Allergy Verified 03/22/20 18:40 Home Medications: Home Meds atorvaSTATin [Lipitor] 10 mg PO BEDTIME 09/28/18 [History] Allopurinol [Zyloprim] 100 mg PO BID 03/22/20 [History] Amoxicillin 250 mg PO ASDIRECTED 03/22/20 [History] Aspirin [Halfprin] 81 mg PO DAILY 03/22/20 [History] Calcitonin ([place]) [Miacalcin Nasal [place]] 1 spray NS DAILY 03/22/20 [History] Calcium Carbonate [Calcium] 500 mg PO DAILY 03/22/20 [History] Ergocalciferol (Vitamin D2) [Vitamin D2] 1.25 mg PO WEEKLY 03/22/20 [History] Levothyroxine [Synthroid] 50 mcg PO DAILY 03/22/20 [History] Past Medical History HEENT History: Reports: Hard of Hearing, Impaired Vision Cardiovascular History: Reports: High Cholesterol Respiratory History: Reports: None Gastrointestinal History: Reports: Chronic Constipation Other Gastrointestinal History: use exlax prn Genitourinary History: Reports: Renal Calculus Musculoskeletal History: Reports: Back Pain, Chronic, Other (See Below) Neurological History: Reports: None Psychiatric History: Reports: Depression Hematologic History: Reports: None Immunologic History: Reports: None Oncologic (Cancer) History: Reports: None Dermatologic History: Reports: None - Infectious Disease History Infectious Disease History: Reports: Chicken Pox, Influenza, Measles, Mumps, Rubella - Past Surgical History HEENT Surgical History: Reports: Cataract Surgery Other HEENT Surgeries/Procedures: INUPIAT GI Surgical History: Reports: Appendectomy, Cholecystectomy Female Surgical History: Reports: Hysterectomy Social & Family History - Family History Family Medical History: No Pertinent Family History - Tobacco Use Tobacco Use Status *Q: Never Tobacco User - Caffeine Use Caffeine Use: Reports: None - Recreational Drug Use Recreational Drug Use: No - Living Situation & Occupation Living situation: Reports: , Alone Occupation: Retired H&P Review of Systems - Review of Systems: Review Of Systems: See Below General: Reports: Weakness, Fatigue HEENT: Reports: No Symptoms Pulmonary: Reports: No Symptoms Cardiovascular: Reports: No Symptoms Gastrointestinal: Reports: No Symptoms Genitourinary: Reports: Dysuria, Frequency, Burning Musculoskeletal: Reports: Back Pain Skin: Reports: No Symptoms Psychiatric: Reports: No Symptoms Neurological: Reports: Difficulty Walking Hematologic/Lymphatic: Reports: No Symptoms Immunologic: Reports: No Symptoms Exam - Exam Exam: See Below - Vital Signs Vital Signs: Last Vital Signs Temp 36.1 C 03/22/20 15:05 Pulse 96 03/22/20 15:05 Resp 18 03/22/20 15:05 BP 153/57 H 03/22/20 15:05 Pulse Ox 98 03/22/20 15:05 Weight: 56.245 kg - Exam Quality Assessment: DVT Prophylaxis. No: Supplemental Oxygen General: Alert, Oriented, Cooperative, Mild Distress HEENT: Conjunctiva Clear, EACs Clear, Hearing Intact, Nares Patent, Pupils Equal, Pupils Reactive. No: Mucosa Moist & [place] (Dry) Neck: Supple, Trachea Midline Lungs: Clear to Auscultation, Normal Respiratory Effort Cardiovascular: Regular Rate, Regular Rhythm GI/Abdominal Exam: Normal Bowel Sounds, Soft, Non-Tender, No Distention (Female) Exam: Deferred Rectal (Female) Exam: Deferred Back Exam: Decreased Range of Motion (Due to pain), Paraspinal Tenderness. No: Full Range of Motion Extremities: Normal Inspection, No Pedal Edema Skin: Warm, Dry, Intact Neurological: Cranial Nerves Intact Neuro Extensive - Mental Status: Alert, Oriented x3 Psychiatric: Alert, Normal Affect - Patient Data Lab Results Last 24 hrs: Laboratory Results - last 24 hr 03/22/20 03/22/20 03/22/20 Range/Units 15:50 15:50 15:50 WBC 9.53 (3.98-10.04) K/mm3 RBC 3.52 L (3.98-5.22) M/mm3 Hgb 10.3 L (11.2-15.7) gm/dl Hct 32.4 L (34.1-44.9) % MCV 92.0 D (79.4-94.8) fl MCH 29.3 (25.6-32.2) pg MCHC 31.8 L (32.2-35.5) g/dl RDW Std Deviation 49.8 H (36.4-46.3) fL Plt Count 384 H D (182-369) K/mm3 MPV 9.8 (9.4-12.3) fl Neut % (Auto) 64.4 (34.0-71.1) % Lymph % (Auto) 25.8 (19.3-51.7) % [place] % (Auto) 7.9 (4.7-12.5) % Eos % (Auto) 0.2 L (0.7-5.8) Baso % (Auto) 0.3 (0.1-1.2) % Neut # (Auto) 6.14 H (1.56-6.13) K/mm3 Lymph # (Auto) 2.46 (1.18-3.74) K/mm3 [place] # (Auto) 0.75 H (0.24-0.36) K/mm3 Eos # (Auto) 0.02 L (0.04-0.36) K/mm3 Baso # (Auto) 0.03 (0.01-0.08) K/mm3 Manual Slide Review Abnormal smear Sodium 140 D (136-145) mEq/L Potassium 4.1 (3.5-5.1) mEq/L Chloride 104 (98-107) mEq/L Carbon Dioxide 23 (21-32) mEq/L Anion Gap 17.1 H (5-15) BUN 37 H D (7-18) mg/dL Creatinine 1.6 H D (0.55-1.02) mg/dL Est Cr Clr Drug Dosing 20.10 mL/min Estimated GFR (MDRD) 31 (>60) mL/min BUN/Creatinine Ratio 23.1 H (14-18) Glucose 103 (83-115) mg/dL Calcium 9.1 D (8.5-10.1) mg/dL Total Bilirubin 0.3 (0.2-1.0) mg/dL AST 46 H (15-37) U/L ALT 34 (14-59) U/L Alkaline Phosphatase 156 H (46-116) U/L Creatine Kinase (26-192) U/L C-Reactive Protein 24.3 H* (<1.0) mg/dL Total Protein 7.5 (6.4-8.2) g/dl Albumin 2.6 L (3.4-5.0) g/dl Globulin 4.9 gm/dL Albumin/Globulin Ratio 0.5 L (1-2) TSH 3rd Generation (0.358-3.74) uIU/mL Urine Color (Yellow) Urine Appearance (Clear) Urine pH (5.0-8.0) Ur Specific [place] (1.005-1.030) Urine Protein (Negative) Urine Glucose (UA) (Negative) Urine Ketones (Negative) Urine Occult Blood (Negative) Urine Nitrite (Negative) Urine Bilirubin (Negative) Urine Urobilinogen (0.2-1.0) Ur Leukocyte Esterase (Negative) Urine RBC (0-5) /hpf Urine WBC (0-5) /hpf Ur Squamous Epith Cells (0-5) /hpf Urine Bacteria (FEW) /hpf Urine Mucus (FEW) /hpf SARS-CoV-2 RNA (SHAHEED) (NEGATIVE) 03/22/20 03/22/20 03/22/20 Range/Units 15:50 15:50 16:06 WBC (3.98-10.04) K/mm3 RBC (3.98-5.22) M/mm3 Hgb (11.2-15.7) gm/dl Hct (34.1-44.9) % MCV (79.4-94.8) fl MCH (25.6-32.2) pg MCHC (32.2-35.5) g/dl RDW Std Deviation (36.4-46.3) fL Plt Count (182-369) K/mm3 MPV (9.4-12.3) fl Neut % (Auto) (34.0-71.1) % Lymph % (Auto) (19.3-51.7) % [place] % (Auto) (4.7-12.5) % Eos % (Auto) (0.7-5.8) Baso % (Auto) (0.1-1.2) % Neut # (Auto) (1.56-6.13) K/mm3 Lymph # (Auto) (1.18-3.74) K/mm3 [place] # (Auto) (0.24-0.36) K/mm3 Eos # (Auto) (0.04-0.36) K/mm3 Baso # (Auto) (0.01-0.08) K/mm3 Manual Slide Review Sodium (136-145) mEq/L Potassium (3.5-5.1) mEq/L Chloride (98-107) mEq/L Carbon Dioxide (21-32) mEq/L Anion Gap (5-15) BUN (7-18) mg/dL Creatinine (0.55-1.02) mg/dL Est Cr Clr Drug Dosing mL/min Estimated GFR (MDRD) (>60) mL/min BUN/Creatinine Ratio (14-18) Glucose (83-115) mg/dL Calcium (8.5-10.1) mg/dL Total Bilirubin (0.2-1.0) mg/dL AST (15-37) U/L ALT (14-59) U/L Alkaline Phosphatase (46-116) U/L Creatine Kinase 104 (26-192) U/L C-Reactive Protein (<1.0) mg/dL Total Protein (6.4-8.2) g/dl Albumin (3.4-5.0) g/dl Globulin gm/dL Albumin/Globulin Ratio (1-2) TSH 3rd Generation 1.913 (0.358-3.74) uIU/mL Urine Color Yellow (Yellow) Urine Appearance Clear (Clear) Urine pH 6.5 (5.0-8.0) Ur Specific [place] 1.020 (1.005-1.030) Urine Protein 2+ H (Negative) Urine Glucose (UA) Negative (Negative) Urine Ketones Negative (Negative) Urine Occult Blood Negative (Negative) Urine Nitrite Negative (Negative) Urine Bilirubin Negative (Negative) Urine Urobilinogen 0.2 (0.2-1.0) Ur Leukocyte Esterase 1+ H (Negative) Urine RBC 0-5 (0-5) /hpf Urine WBC 20-30 H (0-5) /hpf Ur Squamous Epith Cells 0-5 (0-5) /hpf Urine Bacteria Few (FEW) /hpf Urine Mucus Few (FEW) /hpf SARS-CoV-2 RNA (SHAHEED) (NEGATIVE) 03/22/20 Range/Units 16:45 WBC (3.98-10.04) K/mm3 RBC (3.98-5.22) M/mm3 Hgb (11.2-15.7) gm/dl Hct (34.1-44.9) % MCV (79.4-94.8) fl MCH (25.6-32.2) pg MCHC (32.2-35.5) g/dl RDW Std Deviation (36.4-46.3) fL Plt Count (182-369) K/mm3 MPV (9.4-12.3) fl Neut % (Auto) (34.0-71.1) % Lymph % (Auto) (19.3-51.7) % [place] % (Auto) (4.7-12.5) % Eos % (Auto) (0.7-5.8) Baso % (Auto) (0.1-1.2) % Neut # (Auto) (1.56-6.13) K/mm3 Lymph # (Auto) (1.18-3.74) K/mm3 [place] # (Auto) (0.24-0.36) K/mm3 Eos # (Auto) (0.04-0.36) K/mm3 Baso # (Auto) (0.01-0.08) K/mm3 Manual Slide Review Sodium (136-145) mEq/L Potassium (3.5-5.1) mEq/L Chloride (98-107) mEq/L Carbon Dioxide (21-32) mEq/L Anion Gap (5-15) BUN (7-18) mg/dL Creatinine (0.55-1.02) mg/dL Est Cr Clr Drug Dosing mL/min Estimated GFR (MDRD) (>60) mL/min BUN/Creatinine Ratio (14-18) Glucose (83-115) mg/dL Calcium (8.5-10.1) mg/dL Total Bilirubin (0.2-1.0) mg/dL AST (15-37) U/L ALT (14-59) U/L Alkaline Phosphatase (46-116) U/L Creatine Kinase (26-192) U/L C-Reactive Protein (<1.0) mg/dL Total Protein (6.4-8.2) g/dl Albumin (3.4-5.0) g/dl Globulin gm/dL Albumin/Globulin Ratio (1-2) TSH 3rd Generation (0.358-3.74) uIU/mL Urine Color (Yellow) Urine Appearance (Clear) Urine pH (5.0-8.0) Ur Specific [place] (1.005-1.030) Urine Protein (Negative) Urine Glucose (UA) (Negative) Urine Ketones (Negative) Urine Occult Blood (Negative) Urine Nitrite (Negative) Urine Bilirubin (Negative) Urine Urobilinogen (0.2-1.0) Ur Leukocyte Esterase (Negative) Urine RBC (0-5) /hpf Urine WBC (0-5) /hpf Ur Squamous Epith Cells (0-5) /hpf Urine Bacteria (FEW) /hpf Urine Mucus (FEW) /hpf SARS-CoV-2 RNA (SHAHEED) Negative (NEGATIVE) Result Diagrams: 03/23/20 04:35 03/23/20 04:35 Sepsis Event Note - Evaluation Sepsis Screening Result: No Definite Risk - Focused Exam Vital Signs: Vital Signs Temp Pulse Resp BP Pulse Ox 03/22/20 15:05 36.1 C 96 18 153/57 H 98 *Q Meaningful Use (ADM) - VTE *Q VTE Mechanical Contraindications *Q: At Risk for Falls - Problem List (1) UTI (urinary tract infection) SNOMED Code(s): 81402368 ICD Code: N39.0 - URINARY TRACT INFECTION, SITE NOT SPECIFIED Status: Acute Priority: High Current Visit: Yes Problem Details: Outpatient treatment failure Qualifiers: Urinary tract infection type: acute cystitis Hematuria presence: without hematuria Qualified Code(s): N30.00 - Acute cystitis without hematuria (2) Difficulty walking SNOMED Code(s): 267476278 ICD Code: R26.2 - DIFFICULTY IN WALKING, NOT ELSEWHERE CLASSIFIED Status: Acute Priority: High Current Visit: Yes (3) Fall SNOMED Code(s): 1514462, 264256671 ICD Code: W19.XXXA - UNSPECIFIED FALL, INITIAL ENCOUNTER Status: Acute Priority: High Current Visit: Yes Qualifiers: Encounter type: subsequent encounter Qualified Code(s): W19.XXXD - Unspecified fall, subsequent encounter (4) Low back pain SNOMED Code(s): 417307137 ICD Code: M54.5 - LOW BACK PAIN Status: Acute Current Visit: Yes Qualifiers: Chronicity: acute Back pain laterality: bilateral Sciatica presence: without sciatica Qualified Code(s): M54.5 - Low back pain (5) Compression fracture of lumbar vertebra SNOMED Code(s): 406517976 ICD Code: S32.000A - WEDGE COMPRESSION FRACTURE OF UNSP LUMBAR VERTEBRA, INIT Status: Chronic Priority: High Current Visit: Yes Qualifiers: Encounter type: subsequent encounter Lumbar vertebra fracture level: L1 Fracture healing: with delayed healing Qualified Code(s): S32.010G - Wedge compression fracture of first lumbar vertebra, subsequent encounter for fracture with delayed healing (6) Chronic kidney disease, stage 3b SNOMED Code(s): 764912113 ICD Code: N18.32 - CHRONIC KIDNEY DISEASE, STAGE 3B Status: Chronic Priority: Medium Current Visit: Yes Problem List Initiated/Reviewed/Updated: Yes Orders Last 24hrs: Active Orders 24 hr Category Date Time Status Patient Status [ADT] Routine ADT 03/22/20 17:58 Ordered Oxygen Therapy [RC] PRN Care 03/22/20 17:58 Ordered Peripheral IV Care [RC] . DIRECTED Care 03/22/20 15:37 Active Up With Assistance [RC] ASDIRECTED Care 03/22/20 17:58 Ordered VTE/DVT Education [RC] PER UNIT ROUTINE Care 03/22/20 17:58 Ordered Vital Signs [RC] Q4H Care 03/22/20 17:58 Ordered OT Evaluation and Treatment [CONS] Routine Cons 03/22/20 17:58 Ordered PT Evaluation and Treatment [CONS] Routine Cons 03/22/20 17:58 Ordered Heart Healthy Diet [DIET] Diet 03/23/20 Breakfast Ordered CBC WITH AUTO DIFF [HEME] AM Lab 03/23/20 05:11 Ordered COMPREHENSIVE METABOLIC PN,CMP [CHEM] AM Lab 03/23/20 05:11 Ordered CULTURE URINE [RM] Stat Lab 03/22/20 16:00 Received MAGNESIUM [CHEM] AM Lab 03/23/20 05:11 Ordered Acetaminophen [TylenoL] Med 03/22/20 17:58 Ordered 650 mg PO Q4H PRN Aspirin [Halfprin] Med 03/23/20 09:00 Ordered 81 mg PO DAILY Calcitonin ([place]) Med 03/23/20 09:00 Ordered 1 spray NS DAILY Calcium Carbonate [Calcium] Med 03/23/20 09:00 Ordered 500 mg PO DAILY Docusate Sodium [Colace] Med 03/22/20 17:58 Ordered 100 mg PO BID PRN Enoxaparin [Lovenox] Med 03/23/20 09:00 Ordered 30 mg SUBCUT DAILY Ergocalciferol (Vitamin D2) [Vitamin D2] Med 03/22/20 18:00 Ordered 1.25 mg PO WEEKLY Levothyroxine [Synthroid] Med 03/23/20 09:00 Ordered 50 mcg PO DAILY Ondansetron [Zofran ODT] Med 03/22/20 17:58 Ordered 4 mg PO Q4H PRN Sodium Chloride 0.9% [Normal Saline] 1,000 ml Med 03/22/20 18:00 Ordered IV ASDIRECTED Sodium Chloride 0.9% [Normal Saline] 1,000 ml Med 03/22/20 15:45 Active IV ONETIME Sodium Chloride 0.9% [Saline Flush] Med 03/22/20 15:37 Active 10 ml FLUSH ASDIRECTED PRN Temazepam [Restoril] Med 03/22/20 17:58 Ordered 7.5 mg PO BEDTIME PRN allopurinoL [Zyloprim] Med 03/22/20 21:00 Ordered 100 mg PO BID atorvaSTATin Med 03/22/20 21:00 Ordered 10 mg PO BEDTIME cefTRIAXone [Rocephin] 1 gm Med 03/23/20 09:00 Ordered Sodium Chloride 0.9% [Normal Saline] 100 ml IV Q24H oxyCODONE Med 03/22/20 17:58 Ordered 5 mg PO Q4H PRN Peripheral IV Insertion Adult [OM.PC] Stat Oth 03/22/20 15:37 Ordered VTE Mechanical Contraindications [AST] Per Unit Routine Oth 03/22/20 17:58 Ordered Resuscitation Status Routine Resus Stat 03/22/20 17:58 Ordered Medication Orders Acetaminophen (Tylenol) 650 mg PO Q4H PRN PRN Reason: Pain (Mild 1-3)/fever Allopurinol (Zyloprim) 100 mg PO BID [facility]I Aspirin (Halfprin) 81 mg PO DAILY [facility]I Docusate Sodium (Colace) 100 mg PO BID PRN PRN Reason: Constipation Enoxaparin Sodium (Lovenox) 30 mg SUBCUT DAILY CH[facility]I Sodium Chloride (Normal Saline) 1,000 mls @ 999 mls/hr IV ONETIME CHIDI Last Admin: 03/22/20 15:44 Dose: 999 mls/hr Documented by: VEE Sodium Chloride (Normal Saline) 1,000 mls @ 75 mls/hr IV ASDIRECTED CH[facility]I Levothyroxine Sodium (Synthroid) 50 mcg PO DAILY [facility]I Non-Formulary Medication (Atorvastatin) 10 mg PO BEDTIME [facility]I Non-Formulary Medication (Calcitonin ([place])) 1 spray NS DAILY [facility]I Non-Formulary Medication (Calcium Carbonate [Calcium]) 500 mg PO DAILY [facility]IDI Non-Formulary Medication (Ergocalciferol (Vitamin D2) [Vitamin D2]) 1.25 mg PO WEEKLY [facility]I Ondansetron HCl (Zofran Odt) 4 mg PO Q4H PRN PRN Reason: nausea, able to take PO Oxycodone HCl (Oxycodone) 5 mg PO Q4H PRN PRN Reason: Pain (moderate 4-6) Sodium Chloride (Saline Flush) 10 ml FLUSH ASDIRECTED PRN PRN Reason: Keep Vein Open Last Admin: 03/22/20 15:44 Dose: 10 ml Documented by: VEE Temazepam (Restoril) 7.5 mg PO BEDTIME PRN PRN Reason: Sleep Assessment/Plan Comment:: The patient is an 84-year-old lady who has been admitted to inpatient due to her inability to ambulate due to her back pain. The patient does have a history of compression fractures and these will be treated with pain medications as necessary to control this. Patient also is noted to have a urinary tract infection and she has been started on Rocephin 1 g IV every 24 hours. These will be changed depending upon cultures. Patient does have a history of E. coli urinary tract infections. The patient is also noted to have thrombocytosis which is likely reactive due to her falls and urinary tract infection. CBC has been ordered. The patient also has a depressed EGFR relating to chronic kidney disease stage III and her medications will be renally dosed. Repeat comprehensive metabolic panel has also been ordered. The patient is also to h ave a heart healthy diet as tolerated. Physical therapy and occupational therapy have been ordered. The patient does live alone but she has family very nearby who helps her. The patient may be suitable for discharge in 2 days. - Mortality Measure Prognosis:: Good
[2020-03-22] MEDS: Acetaminophen 325 MG Tab PO PRN (18:50)
[2020-03-22] MEDS: Sodium Chloride 0.9% 1,000 ML IV SCH (18:51)
[2020-03-22] MEDS: Allopurinol 100 MG Tab PO SCH (20:22)
[2020-03-22] MEDS: Simvastatin 10 MG Tab PO SCH (20:22)
[2020-03-22] MEDS: oxyCODONE 5 MG Tab PO PRN (20:23)
[2020-03-23] MEDS: Acetaminophen 325 MG Tab PO PRN ×2 (02:05→06:04)
[2020-03-23] MEDS: oxyCODONE 5 MG Tab PO PRN ×5 (02:06→20:00)
[2020-03-23] MEDS: Levothyroxine 50 MCG Tab PO SCH (06:03)
--- NOTE | 2020-03-23 07:13 | PCM.PN ---
- General Info Date of Service: 03/23/20 Admission Dx/Problem (Free Text): Admission Diagnosis/Problem Admission Diagnosis/Problem Urinary tract infection Subjective Update: The patient is an 84-year-old lady who was admitted to acute hospitalization out of concern for lower back pain from a fall that left her unable to ambulate. She does have a history of lumbar compression fractures and she was also noted to have a urinary tract infection. Patient says today that her pain is controlled. She is somewhat better today. She has been tolerating her diet. Functional Status: Reports: Pain Controlled - Review of Systems General: Reports: Weakness, Fatigue HEENT: Reports: No Symptoms Pulmonary: Reports: No Symptoms Cardiovascular: Reports: No Symptoms Gastrointestinal: Reports: No Symptoms Genitourinary: Reports: Dysuria Musculoskeletal: Reports: Back Pain Skin: Reports: No Symptoms Neurological: Reports: Difficulty Walking Psychiatric: Reports: No Symptoms - Patient Data Vitals - Most Recent: Last Vital Signs Temp 36.3 C 03/23/20 03:11 Pulse 70 03/23/20 03:11 Resp 16 03/23/20 03:11 BP 124/91 H 03/23/20 03:11 Pulse Ox 96 03/23/20 03:11 Weight - Most Recent: 56.518 kg I&O - Last 24 Hours: Intake & Output 03/22/20 03/23/20 03/23/20 22:59 06:59 14:59 Intake Total 1668 Output Total 650 Balance 1018 Lab Results Last 24 Hours: Laboratory Results - last 24 hr 03/22/20 03/22/20 03/22/20 Range/Units 15:50 15:50 15:50 WBC 9.53 (3.98-10.04) K/mm3 RBC 3.52 L (3.98-5.22) M/mm3 Hgb 10.3 L (11.2-15.7) gm/dl Hct 32.4 L (34.1-44.9) % MCV 92.0 D (79.4-94.8) fl MCH 29.3 (25.6-32.2) pg MCHC 31.8 L (32.2-35.5) g/dl RDW Std Deviation 49.8 H (36.4-46.3) fL Plt Count 384 H D (182-369) K/mm3 MPV 9.8 (9.4-12.3) fl Neut % (Auto) 64.4 (34.0-71.1) % Lymph % (Auto) 25.8 (19.3-51.7) % [place] % (Auto) 7.9 (4.7-12.5) % Eos % (Auto) 0.2 L (0.7-5.8) Baso % (Auto) 0.3 (0.1-1.2) % Neut # (Auto) 6.14 H (1.56-6.13) K/mm3 Lymph # (Auto) 2.46 (1.18-3.74) K/mm3 [place] # (Auto) 0.75 H (0.24-0.36) K/mm3 Eos # (Auto) 0.02 L (0.04-0.36) K/mm3 Baso # (Auto) 0.03 (0.01-0.08) K/mm3 Manual Slide Review Abnormal smear Sodium 140 D (136-145) mEq/L Potassium 4.1 (3.5-5.1) mEq/L Chloride 104 (98-107) mEq/L Carbon Dioxide 23 (21-32) mEq/L Anion Gap 17.1 H (5-15) BUN 37 H D (7-18) mg/dL Creatinine 1.6 H D (0.55-1.02) mg/dL Est Cr Clr Drug Dosing 20.10 mL/min Estimated GFR (MDRD) 31 (>60) mL/min BUN/Creatinine Ratio 23.1 H (14-18) Glucose 103 (83-115) mg/dL Calcium 9.1 D (8.5-10.1) mg/dL Magnesium (1.8-2.4) mg/dl Total Bilirubin 0.3 (0.2-1.0) mg/dL AST 46 H (15-37) U/L ALT 34 (14-59) U/L Alkaline Phosphatase 156 H (46-116) U/L Creatine Kinase (26-192) U/L C-Reactive Protein 24.3 H* (<1.0) mg/dL Total Protein 7.5 (6.4-8.2) g/dl Albumin 2.6 L (3.4-5.0) g/dl Globulin 4.9 gm/dL Albumin/Globulin Ratio 0.5 L (1-2) TSH 3rd Generation (0.358-3.74) uIU/mL Urine Color (Yellow) Urine Appearance (Clear) Urine pH (5.0-8.0) Ur Specific [place] (1.005-1.030) Urine Protein (Negative) Urine Glucose (UA) (Negative) Urine Ketones (Negative) Urine Occult Blood (Negative) Urine Nitrite (Negative) Urine Bilirubin (Negative) Urine Urobilinogen (0.2-1.0) Ur Leukocyte Esterase (Negative) Urine RBC (0-5) /hpf Urine WBC (0-5) /hpf Ur Squamous Epith Cells (0-5) /hpf Urine Bacteria (FEW) /hpf Urine Mucus (FEW) /hpf SARS-CoV-2 RNA (SHAHEED) (NEGATIVE) 03/22/20 03/22/20 03/22/20 Range/Units 15:50 15:50 16:06 WBC (3.98-10.04) K/mm3 RBC (3.98-5.22) M/mm3 Hgb (11.2-15.7) gm/dl Hct (34.1-44.9) % MCV (79.4-94.8) fl MCH (25.6-32.2) pg MCHC (32.2-35.5) g/dl RDW Std Deviation (36.4-46.3) fL Plt Count (182-369) K/mm3 MPV (9.4-12.3) fl Neut % (Auto) (34.0-71.1) % Lymph % (Auto) (19.3-51.7) % [place] % (Auto) (4.7-12.5) % Eos % (Auto) (0.7-5.8) Baso % (Auto) (0.1-1.2) % Neut # (Auto) (1.56-6.13) K/mm3 Lymph # (Auto) (1.18-3.74) K/mm3 [place] # (Auto) (0.24-0.36) K/mm3 Eos # (Auto) (0.04-0.36) K/mm3 Baso # (Auto) (0.01-0.08) K/mm3 Manual Slide Review Sodium (136-145) mEq/L Potassium (3.5-5.1) mEq/L Chloride (98-107) mEq/L Carbon Dioxide (21-32) mEq/L Anion Gap (5-15) BUN (7-18) mg/dL Creatinine (0.55-1.02) mg/dL Est Cr Clr Drug Dosing mL/min Estimated GFR (MDRD) (>60) mL/min BUN/Creatinine Ratio (14-18) Glucose (83-115) mg/dL Calcium (8.5-10.1) mg/dL Magnesium (1.8-2.4) mg/dl Total Bilirubin (0.2-1.0) mg/dL AST (15-37) U/L ALT (14-59) U/L Alkaline Phosphatase (46-116) U/L Creatine Kinase 104 (26-192) U/L C-Reactive Protein (<1.0) mg/dL Total Protein (6.4-8.2) g/dl Albumin (3.4-5.0) g/dl Globulin gm/dL Albumin/Globulin Ratio (1-2) TSH 3rd Generation 1.913 (0.358-3.74) uIU/mL Urine Color Yellow (Yellow) Urine Appearance Clear (Clear) Urine pH 6.5 (5.0-8.0) Ur Specific [place] 1.020 (1.005-1.030) Urine Protein 2+ H (Negative) Urine Glucose (UA) Negative (Negative) Urine Ketones Negative (Negative) Urine Occult Blood Negative (Negative) Urine Nitrite Negative (Negative) Urine Bilirubin Negative (Negative) Urine Urobilinogen 0.2 (0.2-1.0) Ur Leukocyte Esterase 1+ H (Negative) Urine RBC 0-5 (0-5) /hpf Urine WBC 20-30 H (0-5) /hpf Ur Squamous Epith Cells 0-5 (0-5) /hpf Urine Bacteria Few (FEW) /hpf Urine Mucus Few (FEW) /hpf SARS-CoV-2 RNA (SHAHEED) (NEGATIVE) 03/22/20 03/23/20 03/23/20 Range/Units 16:45 04:35 04:35 WBC 8.15 (3.98-10.04) K/mm3 RBC 3.10 L (3.98-5.22) M/mm3 Hgb 9.0 L (11.2-15.7) gm/dl Hct 28.8 L (34.1-44.9) % MCV 92.9 (79.4-94.8) fl MCH 29.0 (25.6-32.2) pg MCHC 31.3 L (32.2-35.5) g/dl RDW Std Deviation 50.5 H (36.4-46.3) fL Plt Count 326 (182-369) K/mm3 MPV 10.4 (9.4-12.3) fl Neut % (Auto) 48.5 (34.0-71.1) % Lymph % (Auto) 35.1 (19.3-51.7) % [place] % (Auto) 12.8 H (4.7-12.5) % Eos % (Auto) 2.0 (0.7-5.8) Baso % (Auto) 0.4 (0.1-1.2) % Neut # (Auto) 3.96 (1.56-6.13) K/mm3 Lymph # (Auto) 2.86 (1.18-3.74) K/mm3 [place] # (Auto) 1.04 H (0.24-0.36) K/mm3 Eos # (Auto) 0.16 (0.04-0.36) K/mm3 Baso # (Auto) 0.03 (0.01-0.08) K/mm3 Manual Slide Review Abnormal smear Sodium 140 (136-145) mEq/L Potassium 3.9 (3.5-5.1) mEq/L Chloride 107 (98-107) mEq/L Carbon Dioxide 22 (21-32) mEq/L Anion Gap 14.9 (5-15) BUN 35 H (7-18) mg/dL Creatinine 1.4 H (0.55-1.02) mg/dL Est Cr Clr Drug Dosing 24.08 mL/min Estimated GFR (MDRD) 36 (>60) mL/min BUN/Creatinine Ratio 25.0 H (14-18) Glucose 100 (83-115) mg/dL Calcium 8.4 L (8.5-10.1) mg/dL Magnesium 1.8 (1.8-2.4) mg/dl Total Bilirubin 0.2 (0.2-1.0) mg/dL AST 40 H (15-37) U/L ALT 28 (14-59) U/L Alkaline Phosphatase 134 H (46-116) U/L Creatine Kinase (26-192) U/L C-Reactive Protein (<1.0) mg/dL Total Protein 6.2 L (6.4-8.2) g/dl Albumin 2.1 L (3.4-5.0) g/dl Globulin 4.1 gm/dL Albumin/Globulin Ratio 0.5 L (1-2) TSH 3rd Generation (0.358-3.74) uIU/mL Urine Color (Yellow) Urine Appearance (Clear) Urine pH (5.0-8.0) Ur Specific [place] (1.005-1.030) Urine Protein (Negative) Urine Glucose (UA) (Negative) Urine Ketones (Negative) Urine Occult Blood (Negative) Urine Nitrite (Negative) Urine Bilirubin (Negative) Urine Urobilinogen (0.2-1.0) Ur Leukocyte Esterase (Negative) Urine RBC (0-5) /hpf Urine WBC (0-5) /hpf Ur Squamous Epith Cells (0-5) /hpf Urine Bacteria (FEW) /hpf Urine Mucus (FEW) /hpf SARS-CoV-2 RNA (SHAHEED) Negative (NEGATIVE) Med Orders - Current: Current Medications Acetaminophen (Tylenol) 650 mg PO Q4H PRN PRN Reason: Pain (Mild 1-3)/fever Last Admin: 03/23/20 06:04 Dose: 650 mg Documented by: Allopurinol (Zyloprim) 100 mg PO BID [facility] Last Admin: 03/22/20 20:22 Dose: 100 mg Documented by: Aspirin (Halfprin) 81 mg PO DAILY [facility] Calcium Carbonate/Glycine (Tums) 500 mg PO DAILY [facility] Docusate Sodium (Colace) 100 mg PO BID PRN PRN Reason: Constipation Enoxaparin Sodium (Lovenox) 30 mg SUBCUT DAILY [facility] Sodium Chloride (Normal Saline) 1,000 mls @ 75 mls/hr IV ASDIRECTED [facility] Last Admin: 03/22/20 18:51 Dose: 75 mls/hr Documented by: Ceftriaxone Sodium 1 gm/ (Sodium Chloride) 100 mls @ 200 mls/hr IV Q24H [facility] Levothyroxine Sodium (Synthroid) 50 mcg PO ACBRK [facility] Last Admin: 03/23/20 06:03 Dose: 50 mcg Documented by: Calcitonin ([place]) (1 [place] Ptom) 1 spray .XX DAILY [facility] Ergocalciferol ( (Vitamin D2) Ptom) 1.25 mg PO Q7D [facility] Ondansetron HCl (Zofran Odt) 4 mg PO Q4H PRN PRN Reason: nausea, able to take PO Oxycodone HCl (Oxycodone) 5 mg PO Q4H PRN PRN Reason: Pain (moderate 4-6) Last Admin: 03/23/20 06:04 Dose: 5 mg Documented by: Simvastatin (Zocor) 10 mg PO BEDTIME [facility] Last Admin: 03/22/20 20:22 Dose: 10 mg Documented by: Sodium Chloride (Saline Flush) 10 ml FLUSH ASDIRECTED PRN PRN Reason: Keep Vein Open Last Admin: 03/22/20 15:44 Dose: 10 ml Documented by: Temazepam (Restoril) 7.5 mg PO BEDTIME PRN PRN Reason: Sleep Discontinued Medications Sodium Chloride (Normal Saline) 1,000 mls @ 999 mls/hr IV ONETIME [facility] Last Admin: 03/22/20 15:44 Dose: 999 mls/hr Documented by: Ceftriaxone Sodium 1 gm/ (Sodium Chloride) 100 mls @ 200 mls/hr IV ONETIME ONE Stop: 03/22/20 17:14 Last Admin: 03/22/20 17:00 Dose: 200 mls/hr Documented by: - Exam Quality Assessment: DVT Prophylaxis. No: Supplemental Oxygen General: Alert, Oriented, Cooperative HEENT: Pupils Equal, Pupils Reactive, EOMI Neck: Supple, Trachea Midline Lungs: Clear to Auscultation, Normal Respiratory Effort Cardiovascular: Regular Rate, Regular Rhythm GI/Abdominal Exam: Normal Bowel Sounds, Soft, Non-Tender, No Distention (Female) Exam: Deferred Back Exam: Paraspinal Tenderness. No: Full Range of Motion Extremities: Normal Inspection, No Pedal Edema Skin: Warm, Dry, Intact Neurological: No New Focal Deficit Psy/Mental Status: Alert, Normal Affect, Normal Mood Sepsis Event Note - Evaluation Sepsis Screening Result: No Definite Risk - Focused Exam Vital Signs: Vital Signs Temp Pulse Resp BP Pulse Ox 03/23/20 03:11 36.3 C 70 16 124/91 H 96 03/22/20 23:07 36.7 C 73 16 119/85 96 03/22/20 20:27 36.6 C 88 18 131/56 L 95 - Problem List & Annotations (1) UTI (urinary tract infection) SNOMED Code(s): 43156334 Code(s): N39.0 - URINARY TRACT INFECTION, SITE NOT SPECIFIED Status: Acute Priority: High Current Visit: Yes Qualifiers: Urinary tract infection type: acute cystitis Hematuria presence: without hematuria Qualified Code(s): N30.00 - Acute cystitis without hematuria Annotation/Comment:: Outpatient treatment failure (2) Difficulty walking SNOMED Code(s): 114141086 Code(s): R26.2 - DIFFICULTY IN WALKING, NOT ELSEWHERE CLASSIFIED Status: Acute Priority: High Current Visit: Yes (3) Fall SNOMED Code(s): 5574642, 062096767 Code(s): W19.XXXA - UNSPECIFIED FALL, INITIAL ENCOUNTER Status: Acute Priority: High Current Visit: Yes Qualifiers: Encounter type: subsequent encounter Qualified Code(s): W19.XXXD - Unspecified fall, subsequent encounter (4) Low back pain SNOMED Code(s): 100892351 Code(s): M54.5 - LOW BACK PAIN Status: Acute Current Visit: Yes Qualifiers: Chronicity: acute Back pain laterality: bilateral Sciatica presence: without sciatica Qualified Code(s): M54.5 - Low back pain (5) Compression fracture of lumbar vertebra SNOMED Code(s): 164222360 Code(s): S32.000A - WEDGE COMPRESSION FRACTURE OF UNSP LUMBAR VERTEBRA, INIT Status: Chronic Priority: High Current Visit: Yes Qualifiers: Encounter type: subsequent encounter Lumbar vertebra fracture level: L1 Fracture healing: with delayed healing (6) Chronic kidney disease, stage 3b SNOMED Code(s): 543422645 Code(s): N18.32 - CHRONIC KIDNEY DISEASE, STAGE 3B Status: Chronic Priority: Medium Current Visit: Yes (7) Anemia SNOMED Code(s): 667465701 Code(s): D64.9 - ANEMIA, UNSPECIFIED Status: Acute Priority: Medium Current Visit: Yes Qualifiers: Anemia type: unspecified type Qualified Code(s): D64.9 - Anemia, unspecified - Problem List Review Problem List Initiated/Reviewed/Updated: Yes - My Orders Last 24 Hours: My Active Orders 03/22/20 17:58 Patient Status [ADT] Routine Oxygen Therapy [RC] PRN Up With Assistance [RC] BID VTE/DVT Education [RC] DAILY OT Evaluation and Treatment [CONS] Routine PT Evaluation and Treatment [CONS] Routine Acetaminophen [TylenoL] 650 mg PO Q4H PRN Docusate Sodium [Colace] 100 mg PO BID PRN Ondansetron [Zofran ODT] 4 mg PO Q4H PRN Temazepam [Restoril] 7.5 mg PO BEDTIME PRN oxyCODONE 5 mg PO Q4H PRN VTE Mechanical Contraindications [AST] Per Unit Routine Resuscitation Status Routine 03/22/20 18:00 Sodium Chloride 0.9% [Normal Saline] 1,000 ml IV ASDIRECTED 03/22/20 21:00 Simvastatin [Zocor] 10 mg PO BEDTIME allopurinoL [Zyloprim] 100 mg PO BID 03/23/20 06:00 Levothyroxine [Synthroid] 50 mcg PO ACBRK 03/23/20 Breakfast Heart Healthy Diet [DIET] 03/23/20 09:00 Aspirin [Halfprin] 81 mg PO DAILY Calcitonin ([place]) 1 spray .XX DAILY Calcium Carbonate [Tums] 500 mg PO DAILY Enoxaparin [Lovenox] 30 mg SUBCUT DAILY cefTRIAXone [Rocephin] 1 gm Sodium Chloride 0.9% [Normal Saline] 100 ml IV Q24H 03/29/20 09:00 Ergocalciferol (Vitamin D2) [Vitamin D2] 1.25 mg PO Q7D - Plan Plan:: The patient is an 84-year-old lady who has been admitted to inpatient due to her inability to ambulate due to her back pain. The patient does have a history of compression fractures and these will be treated with pain medications as necessary to control this. Patient also is noted to have a urinary tract infection and she has been started on Rocephin 1 g IV every 24 hours. These will be changed depending upon cultures. Patient does have a history of E. coli urinary tract infections. The patient is also noted to have thrombocytosis which is likely reactive due to her falls and urinary tract infection. CBC has been ordered. The patient also has a depressed EGFR relating to chronic kidney disease stage III and her medications will be renally dosed. Repeat comprehensive metabolic panel has also been ordered. The patient is also to have a heart healthy diet as tolerated. Physical therapy and occupational therapy have been ordered. The patient does live alone but she has family very nearby who helps her. The patient may be suitable for discharge in 2 days. 03/23/2020 The patient is an 84-year-old lady who was admitted primarily out of concern for inability to ambulate due to her back pain. The patient will continue physical therapy evaluation as needed and she may require [facility] facility before returning home. The patient's UTI will continue treatment with a dose of IV Rocephin 1 g every 24 hours out of consideration for her renal function. This will be changed as cultures indicate. Patient does have a depressed EGFR stage III chronic kidney disease and repeat laboratory studies have been ordered for the morning. The patient is also noted to be anemic and a CBC will be ordered for the morning and she will be considered for transfusion if her hemoglobin drops below 7.0 g/dL. Patient will have heart healthy diet as tolerated. She should be appropriate for discharge depending upon PT OT evaluation 2 to 3 days.
[2020-03-23] MEDS: Aspirin 81 MG Tab.EC PO SCH (08:29)
[2020-03-23] MEDS: Enoxaparin 30 MG/0.3 ML Syringe SUBCUT SCH (08:29)
[2020-03-23] MEDS: Allopurinol 100 MG Tab PO SCH ×2 (08:29→20:01)
[2020-03-23] MEDS: Calcium Carbonate 500 MG Tab.Chew PO SCH (08:29)
[2020-03-23] MEDS: Sodium Chloride 0.9% 1,000 ML IV SCH (08:43)
[2020-03-23] MEDS: CALCITONIN SCH (09:52)
[2020-03-23] MEDS: cefTRIAXone 1 GM in Sodium Chloride 0.9% 100 ML IV SCH (16:18)
[2020-03-23] MEDS: Simvastatin 10 MG Tab PO SCH (20:01)
[2020-03-24] MEDS: Sodium Chloride 0.9% 1,000 ML IV SCH (00:33)
[2020-03-24] MEDS: Levothyroxine 50 MCG Tab PO SCH ×2 (04:52→05:05)
--- NOTE | 2020-03-24 08:37 | PCM.PN ---
<Brendan Ohara - Last Filed: 03/24/20 15:54> - General Info Date of Service: 03/24/20 Admission Dx/Problem (Free Text): Admission Diagnosis/Problem Admission Diagnosis/Problem Urinary tract infection Subjective Update: In to see Alem. She is laying in bed having just gotten up for shower. She reports back pain but states it is chronic and currently at baseline. PT and OT have been working with her. Her urine has no growth thus far, yet this is not surprising given the fact that the patient was in on an antibiotic prior to admission. Hemoglobin is up to 9.4. Creatinine down to 1.5 with a GFR 33. This is been stable while here. Patient is refusing SNF placement. PT/OT is recommending home with home health services versus SNF placement. Plan is discharge tomorrow with home health services pending continued stability. Functional Status: Reports: Pain Controlled, Tolerating Diet, Ambulating, Urinating. Denies: New Symptoms - Review of Systems General: Reports: No Symptoms, Weakness. Denies: Fever, Fatigue, Malaise, Chills HEENT: Reports: No Symptoms. Denies: Headaches, Sore Throat Pulmonary: Reports: No Symptoms. Denies: Shortness of Breath, Cough, Sputum, Wheezing Cardiovascular: Reports: No Symptoms. Denies: Chest Pain, Palpitations, Dyspnea on Exertion, Edema Gastrointestinal: Reports: No Symptoms. Denies: Abdominal Pain, Constipation, Diarrhea, Nausea, Vomiting Genitourinary: Reports: No Symptoms. Denies: Pain Musculoskeletal: Reports: Back Pain Skin: Reports: No Symptoms. Denies: Cyanosis Neurological: Reports: Pre-Existing Deficit, Difficulty Walking, Weakness, Gait Disturbance. Denies: Confusion Psychiatric: Reports: No Symptoms - Patient Data Vitals - Most Recent: Last Vital Signs Temp 99.1 F 03/24/20 07:13 Pulse 78 03/24/20 07:13 Resp 14 03/24/20 07:13 BP 108/57 L 03/24/20 07:13 Pulse Ox 97 03/24/20 07:13 Weight - Most Recent: 58.196 kg I&O - Last 24 Hours: Intake & Output 03/23/20 03/24/20 03/24/20 22:59 06:59 14:59 Intake Total 1815 1300 Output Total 300 750 Balance 1515 550 Lab Results Last 24 Hours: Laboratory Results - last 24 hr 03/24/20 03/24/20 Range/Units 04:47 04:47 WBC 9.02 (3.98-10.04) K/mm3 RBC 3.22 L (3.98-5.22) M/mm3 Hgb 9.4 L (11.2-15.7) gm/dl Hct 29.9 L (34.1-44.9) % MCV 92.9 (79.4-94.8) fl MCH 29.2 (25.6-32.2) pg MCHC 31.4 L (32.2-35.5) g/dl RDW Std Deviation 51.2 H (36.4-46.3) fL Plt Count 347 (182-369) K/mm3 MPV 10.5 (9.4-12.3) fl Neut % (Auto) 43.0 (34.0-71.1) % Lymph % (Auto) 39.7 (19.3-51.7) % [place] % (Auto) 12.4 (4.7-12.5) % Eos % (Auto) 2.4 (0.7-5.8) Baso % (Auto) 0.7 (0.1-1.2) % Neut # (Auto) 3.88 (1.56-6.13) K/mm3 Lymph # (Auto) 3.58 (1.18-3.74) K/mm3 [place] # (Auto) 1.12 H (0.24-0.36) K/mm3 Eos # (Auto) 0.22 (0.04-0.36) K/mm3 Baso # (Auto) 0.06 (0.01-0.08) K/mm3 Manual Slide Review Abnormal smear Sodium 141 (136-145) mEq/L Potassium 4.4 (3.5-5.1) mEq/L Chloride 107 (98-107) mEq/L Carbon Dioxide 20 L (21-32) mEq/L Anion Gap 18.4 H (5-15) BUN 24 H (7-18) mg/dL Creatinine 1.5 H (0.55-1.02) mg/dL Est Cr Clr Drug Dosing 22.47 mL/min Estimated GFR (MDRD) 33 (>60) mL/min BUN/Creatinine Ratio 16.0 (14-18) Glucose 89 (83-115) mg/dL Calcium 8.8 (8.5-10.1) mg/dL Wily Results Last 24 Hours: Microbiology 03/22/20 16:00 Urine Culture - Final Urine, Clean Catch NO GROWTH AFTER 2 DAYS Med Orders - Current: Current Medications Acetaminophen (Tylenol) 650 mg PO Q4H PRN PRN Reason: Pain (Mild 1-3)/fever Last Admin: 03/23/20 06:04 Dose: 650 mg Documented by: Allopurinol (Zyloprim) 100 mg PO BID [facility] Last Admin: 03/23/20 20:01 Dose: 100 mg Documented by: Aspirin (Halfprin) 81 mg PO DAILY [facility] Last Admin: 03/23/20 08:29 Dose: 81 mg Documented by: Calcium Carbonate/Glycine (Tums) 500 mg PO DAILY [facility] Last Admin: 03/23/20 08:29 Dose: 500 mg Documented by: Docusate Sodium (Colace) 100 mg PO BID PRN PRN Reason: Constipation Enoxaparin Sodium (Lovenox) 30 mg SUBCUT DAILY [facility] Last Admin: 03/23/20 08:29 Dose: 30 mg Documented by: Sodium Chloride (Normal Saline) 1,000 mls @ 75 mls/hr IV ASDIRECTED [facility] Last Admin: 03/24/20 00:33 Dose: 75 mls/hr Documented by: Ceftriaxone Sodium 1 gm/ (Sodium Chloride) 100 mls @ 200 mls/hr IV Q24H [facility] Last Admin: 03/23/20 16:18 Dose: 200 mls/hr Documented by: Levothyroxine Sodium (Synthroid) 50 mcg PO ACBRK [facility] Last Admin: 03/24/20 05:05 Dose: Not Given Documented by: Calcitonin ([place]) (1 [place] Ptom) 1 spray .XX DAILY [facility] Last Admin: 03/23/20 09:52 Dose: Not Given Documented by: Ergocalciferol ( (Vitamin D2) Ptom) 1.25 mg PO Q7D [facility] Ondansetron HCl (Zofran Odt) 4 mg PO Q4H PRN PRN Reason: nausea, able to take PO Oxycodone HCl (Oxycodone) 5 mg PO Q4H PRN PRN Reason: Pain (moderate 4-6) Last Admin: 03/23/20 20:00 Dose: 5 mg Documented by: Simvastatin (Zocor) 10 mg PO BEDTIME [facility] Last Admin: 03/23/20 20:01 Dose: 10 mg Documented by: Sodium Chloride (Saline Flush) 10 ml FLUSH ASDIRECTED PRN PRN Reason: Keep Vein Open Last Admin: 03/22/20 15:44 Dose: 10 ml Documented by: Temazepam (Restoril) 7.5 mg PO BEDTIME PRN PRN Reason: Sleep Discontinued Medications Sodium Chloride (Normal Saline) 1,000 mls @ 999 mls/hr IV ONETIME [facility] Last Admin: 03/22/20 15:44 Dose: 999 mls/hr Documented by: Ceftriaxone Sodium 1 gm/ (Sodium Chloride) 100 mls @ 200 mls/hr IV ONETIME ONE Stop: 03/22/20 17:14 Last Admin: 03/22/20 17:00 Dose: 200 mls/hr Documented by: - Exam Quality Assessment: DVT Prophylaxis. No: Supplemental Oxygen General: Alert, Oriented, Cooperative, No Acute Distress HEENT: Pupils Equal, Pupils Reactive, Mucous Membr. Moist/[place] Neck: Supple, Trachea Midline Lungs: Clear to Auscultation, Normal Respiratory Effort Cardiovascular: Regular Rate, Regular Rhythm GI/Abdominal Exam: Normal Bowel Sounds, Soft, Non-Tender, No Distention (Female) Exam: Deferred Back Exam: Normal Inspection, Decreased Range of Motion (2/2 pain ), Paraspinal Tenderness (left side ), Vertebral Tenderness Extremities: Normal Inspection, Normal Range of Motion, Non-Tender, No Pedal Edema, Normal Capillary Refill Peripheral Pulses: 2+: Radial (L), Radial (R), Dorsalis Pedis (L), Dorsalis Pedis (R) Skin: Warm, Dry, Intact Neurological: No New Focal Deficit Psy/Mental Status: Alert, Normal Affect, Normal Mood Sepsis Event Note - Evaluation Sepsis Screening Result: No Definite Risk - Focused Exam Vital Signs: Vital Signs Temp Pulse Resp BP Pulse Ox 03/24/20 07:13 99.1 F 78 14 108/57 L 97 03/24/20 04:51 99.0 F 78 16 134/65 95 - Problem List & Annotations (1) Anemia SNOMED Code(s): 179017911 Code(s): D64.9 - ANEMIA, UNSPECIFIED Status: Chronic Priority: Medium Current Visit: Yes Qualifiers: Anemia type: unspecified type Qualified Code(s): D64.9 - Anemia, unspecified (2) Difficulty walking SNOMED Code(s): 884303998 Code(s): R26.2 - DIFFICULTY IN WALKING, NOT ELSEWHERE CLASSIFIED Status: Acute Priority: High Current Visit: Yes (3) Fall SNOMED Code(s): 3038537, 801411051 Code(s): W19.XXXA - UNSPECIFIED FALL, INITIAL ENCOUNTER Status: Acute Priority: High Current Visit: Yes Qualifiers: Encounter type: subsequent encounter Qualified Code(s): W19.XXXD - Unspecified fall, subsequent encounter (4) Low back pain SNOMED Code(s): 789492268 Code(s): M54.5 - LOW BACK PAIN Status: Chronic Priority: High Current Visit: Yes Qualifiers: Chronicity: chronic Back pain laterality: bilateral Sciatica presence: without sciatica Qualified Code(s): M54.5 - Low back pain; G89.29 - Other chronic pain (5) UTI (urinary tract infection) SNOMED Code(s): 26310451 Code(s): N39.0 - URINARY TRACT INFECTION, SITE NOT SPECIFIED Status: Acute Priority: High Current Visit: Yes Qualifiers: Urinary tract infection type: acute cystitis Hematuria presence: without hematuria Qualified Code(s): N30.00 - Acute cystitis without hematuria Annotation/Comment:: Outpatient treatment failure (6) Chronic kidney disease, stage 3b SNOMED Code(s): 042343604 Code(s): N18.32 - CHRONIC KIDNEY DISEASE, STAGE 3B Status: Chronic Priority: Medium Current Visit: Yes (7) Compression fracture of lumbar vertebra SNOMED Code(s): 828098669 Code(s): S32.000A - WEDGE COMPRESSION FRACTURE OF UNSP LUMBAR VERTEBRA, INIT Status: Chronic Priority: High Current Visit: Yes Qualifiers: Encounter type: subsequent encounter Lumbar vertebra fracture level: L1 Fracture healing: with delayed healing (8) Multiple myeloma SNOMED Code(s): 111892741 Code(s): C90.00 - MULTIPLE MYELOMA NOT HAVING ACHIEVED REMISSION Status: Chronic Priority: Medium Current Visit: No Qualifiers: Multiple myeloma remission status: unspecified Qualified Code(s): C90.00 - Multiple myeloma not having achieved remission - Problem List Review Problem List Initiated/Reviewed/Updated: Yes - Plan Plan:: The patient is an 84-year-old lady who has been admitted to inpatient due to her inability to ambulate due to her back pain. The patient does have a history of compression fractures and these will be treated with pain medications as necessary to control this. Patient also is noted to have a urinary tract infection and she has been started on Rocephin 1 g IV every 24 hours. These will be changed depending upon cultures. Patient does have a history of E. coli urinary tract infections. The patient is also noted to have thrombocytosis which is likely reactive due to her falls and urinary tract infection. CBC has been ordered. The patient also has a depressed EGFR relating to chronic kidney disease stage III and her medications will be renally dosed. Repeat comprehensive metabolic panel has also been ordered. The patient is also to have a heart healthy diet as tolerated. Physical therapy and occupational therapy have been ordered. The patient does live alone but she has family very nearby who helps her. The patient may be suitable for discharge in 2 days. 03/23/2020 The patient is an 84-year-old lady who was admitted primarily out of concern for inability to ambulate due to her back pain. The patient will continue physical therapy evaluation as needed and she may require half-way facility before returning home. The patient's UTI will continue treatment with a dose of IV Rocephin 1 g every 24 hours out of consideration for her renal function. This will be changed as cultures indicate. Patient does have a depressed EGFR stage III chronic kidney disease and repeat laboratory studies have been ordered for the morning. The patient is also noted to be anemic and a CBC will be ordered for the morning and she will be considered for transfusion if her hemoglobin drops below 7.0 g/dL. Patient will have heart healthy diet as tolerated. She should be appropriate for discharge depending upon PT OT evaluation 2 to 3 days. 03/24/2020 84-year-old female admitted due to difficulty with ambulation secondary to chronic back pain and also a UTI which she was on antibiotics prior to admission. We will continue Rocephin 1 g every 24 hours. There is been no growth from her urine although as noted this is likely due to her being on antibiotics prior to admission. She was up in the shower today and has been ambulating with therapies. They are recommending SNF placement versus home health services on discharge. Patient is adamant about SNF placement. Will discontinue IV fluids currently as patient is reported that she is urinating frequently and labs remained stable. Hemoglobin today was up to 9.4. Patient does have a history of multiple myeloma per prior notes. Creatinine is down to 1.5 today with GFR 33. This has been stable throughout her stay. Hopeful for discharge tomorrow pending continued stability. <Toirn Lindsey M - Last Filed: 03/24/20 16:23> - Patient Data Vitals - Most Recent: Last Vital Signs Temp 37.1 C 03/24/20 11:51 Pulse 80 03/24/20 15:10 Resp 14 03/24/20 15:10 BP 110/52 L 03/24/20 15:10 Pulse Ox 96 03/24/20 15:10 I&O - Last 24 Hours: Intake & Output 03/24/20 03/24/20 03/24/20 06:59 14:59 22:59 Intake Total 1300 240 800 Output Total 750 575 Balance 550 240 225 Lab Results Last 24 Hours: Laboratory Results - last 24 hr 03/24/20 03/24/20 Range/Units 04:47 04:47 WBC 9.02 (3.98-10.04) K/mm3 RBC 3.22 L (3.98-5.22) M/mm3 Hgb 9.4 L (11.2-15.7) gm/dl Hct 29.9 L (34.1-44.9) % MCV 92.9 (79.4-94.8) fl MCH 29.2 (25.6-32.2) pg MCHC 31.4 L (32.2-35.5) g/dl RDW Std Deviation 51.2 H (36.4-46.3) fL Plt Count 347 (182-369) K/mm3 MPV 10.5 (9.4-12.3) fl Neut % (Auto) 43.0 (34.0-71.1) % Lymph % (Auto) 39.7 (19.3-51.7) % [place] % (Auto) 12.4 (4.7-12.5) % Eos % (Auto) 2.4 (0.7-5.8) Baso % (Auto) 0.7 (0.1-1.2) % Neut # (Auto) 3.88 (1.56-6.13) K/mm3 Lymph # (Auto) 3.58 (1.18-3.74) K/mm3 [place] # (Auto) 1.12 H (0.24-0.36) K/mm3 Eos # (Auto) 0.22 (0.04-0.36) K/mm3 Baso # (Auto) 0.06 (0.01-0.08) K/mm3 Manual Slide Review Abnormal smear Sodium 141 (136-145) mEq/L Potassium 4.4 (3.5-5.1) mEq/L Chloride 107 (98-107) mEq/L Carbon Dioxide 20 L (21-32) mEq/L Anion Gap 18.4 H (5-15) BUN 24 H (7-18) mg/dL Creatinine 1.5 H (0.55-1.02) mg/dL Est Cr Clr Drug Dosing 22.47 mL/min Estimated GFR (MDRD) 33 (>60) mL/min BUN/Creatinine Ratio 16.0 (14-18) Glucose 89 (83-115) mg/dL Calcium 8.8 (8.5-10.1) mg/dL Wily Results Last 24 Hours: Microbiology 03/22/20 16:00 Urine Culture - Final Urine, Clean Catch NO GROWTH AFTER 2 DAYS Med Orders - Current: Current Medications Acetaminophen (Tylenol) 650 mg PO Q4H PRN PRN Reason: Pain (Mild 1-3)/fever Last Admin: 03/23/20 06:04 Dose: 650 mg Documented by: Allopurinol (Zyloprim) 100 mg PO BID [facility] Last Admin: 03/24/20 08:55 Dose: 100 mg Documented by: Aspirin (Halfprin) 81 mg PO DAILY [facility] Last Admin: 03/24/20 08:54 Dose: 81 mg Documented by: Calcium Carbonate/Glycine (Tums) 500 mg PO DAILY [facility] Last Admin: 03/24/20 08:55 Dose: 500 mg Documented by: Docusate Sodium (Colace) 100 mg PO BID PRN PRN Reason: Constipation Enoxaparin Sodium (Lovenox) 30 mg SUBCUT DAILY [facility] Last Admin: 03/24/20 08:57 Dose: 30 mg Documented by: Ceftriaxone Sodium 1 gm/ (Sodium Chloride) 100 mls @ 200 mls/hr IV Q24H [facility] Last Admin: 03/23/20 16:18 Dose: 200 mls/hr Documented by: Levothyroxine Sodium (Synthroid) 50 mcg PO ACBRK [facility] Last Admin: 03/24/20 05:05 Dose: Not Given Documented by: Calcitonin ([place]) (1 [place] Ptom) 1 spray .XX DAILY [facility] Last Admin: 03/24/20 08:59 Dose: Not Given Documented by: Ergocalciferol ( (Vitamin D2) Ptom) 1.25 mg PO Q7D [facility] Ondansetron HCl (Zofran Odt) 4 mg PO Q4H PRN PRN Reason: nausea, able to take PO Oxycodone HCl (Oxycodone) 5 mg PO Q4H PRN PRN Reason: Pain (moderate 4-6) Last Admin: 03/24/20 08:55 Dose: 5 mg Documented by: Simvastatin (Zocor) 10 mg PO BEDTIME [facility] Last Admin: 03/23/20 20:01 Dose: 10 mg Documented by: Sodium Chloride (Saline Flush) 10 ml FLUSH ASDIRECTED PRN PRN Reason: Keep Vein Open Last Admin: 03/22/20 15:44 Dose: 10 ml Documented by: Temazepam (Restoril) 7.5 mg PO BEDTIME PRN PRN Reason: Sleep Discontinued Medications Sodium Chloride (Normal Saline) 1,000 mls @ 999 mls/hr IV ONETIME [facility] Last Admin: 03/22/20 15:44 Dose: 999 mls/hr Documented by: Ceftriaxone Sodium 1 gm/ (Sodium Chloride) 100 mls @ 200 mls/hr IV ONETIME ONE Stop: 03/22/20 17:14 Last Admin: 03/22/20 17:00 Dose: 200 mls/hr Documented by: Sodium Chloride (Normal Saline) 1,000 mls @ 75 mls/hr IV ASDIRECTED [facility] Last Admin: 03/24/20 00:33 Dose: 75 mls/hr Documented by: Sepsis Event Note - Focused Exam Vital Signs: Vital Signs Temp Pulse Resp BP Pulse Ox 03/24/20 15:10 80 14 110/52 L 96 03/24/20 11:51 37.1 C 67 14 122/97 H 92 L 03/24/20 07:13 37.3 C 78 14 108/57 L 97 01/28/21 04:51 37.2 C 78 16 134/65 95 - Problem List & Annotations (1) UTI (urinary tract infection) SNOMED Code(s): 89473739 Code(s): N39.0 - URINARY TRACT INFECTION, SITE NOT SPECIFIED Status: Acute Priority: High Current Visit: Yes Qualifiers: Urinary tract infection type: acute cystitis Hematuria presence: without hematuria Qualified Code(s): N30.00 - Acute cystitis without hematuria Annotation/Comment:: Outpatient treatment failure (2) Difficulty walking SNOMED Code(s): 356604305 Code(s): R26.2 - DIFFICULTY IN WALKING, NOT ELSEWHERE CLASSIFIED Status: Acute Priority: High Current Visit: Yes (3) Fall SNOMED Code(s): 7211562, 089706550 Code(s): W19.XXXA - UNSPECIFIED FALL, INITIAL ENCOUNTER Status: Acute Priority: High Current Visit: Yes Qualifiers: Encounter type: subsequent encounter Qualified Code(s): W19.XXXD - Unspecified fall, subsequent encounter (4) Low back pain SNOMED Code(s): 288598316 Code(s): M54.5 - LOW BACK PAIN Status: Chronic Priority: High Current Visit: Yes Qualifiers: Chronicity: chronic Back pain laterality: bilateral Sciatica presence: without sciatica Qualified Code(s): M54.5 - Low back pain; G89.29 - Other chronic pain (5) Compression fracture of lumbar vertebra SNOMED Code(s): 107726024 Code(s): S32.000A - WEDGE COMPRESSION FRACTURE OF UNSP LUMBAR VERTEBRA, INIT Status: Chronic Priority: High Current Visit: Yes Qualifiers: Encounter type: subsequent encounter Lumbar vertebra fracture level: L1 Fracture healing: with delayed healing (6) Chronic kidney disease, stage 3b SNOMED Code(s): 004026246 Code(s): N18.32 - CHRONIC KIDNEY DISEASE, STAGE 3B Status: Chronic Priority: Medium Current Visit: Yes (7) Anemia SNOMED Code(s): 545836920 Code(s): D64.9 - ANEMIA, UNSPECIFIED Status: Chronic Priority: Medium Current Visit: Yes Qualifiers: Anemia type: unspecified type Qualified Code(s): D64.9 - Anemia, unspecified - My Orders Last 24 Hours: My Active Orders 03/23/20 17:00 [email or web address] [Rocephin] 1 gm Sodium Chloride 0.9% [Normal Saline] 100 ml IV Q24H 03/29/20 09:00 Ergocalciferol (Vitamin D2) [Vitamin D2] 1.25 mg PO Q7D - Plan Plan:: I have seen and examined the patient independently of Brendan Ohara PA-C. I have reviewed the orders and agree with the plan of care as outlined by him. I have discussed the case with him. Please see orders.
[2020-03-24] MEDS: Aspirin 81 MG Tab.EC PO SCH (08:54)
[2020-03-24] MEDS: oxyCODONE 5 MG Tab PO PRN ×2 (08:55→20:16)
[2020-03-24] MEDS: Calcium Carbonate 500 MG Tab.Chew PO SCH (08:55)
[2020-03-24] MEDS: Allopurinol 100 MG Tab PO SCH ×2 (08:55→20:15)
[2020-03-24] MEDS: Enoxaparin 30 MG/0.3 ML Syringe SUBCUT SCH (08:57)
[2020-03-24] MEDS: CALCITONIN SCH (08:59)
[2020-03-24] MEDS: cefTRIAXone 1 GM in Sodium Chloride 0.9% 100 ML IV SCH (18:00)
[2020-03-24] MEDS: Acetaminophen 325 MG Tab PO PRN (20:15)
[2020-03-24] MEDS: Simvastatin 10 MG Tab PO SCH (20:15)
[2020-03-25] MEDS: Acetaminophen 325 MG Tab PO PRN (03:24)
[2020-03-25] MEDS: oxyCODONE 5 MG Tab PO PRN (03:24)
[2020-03-25] MEDS: Levothyroxine 50 MCG Tab PO SCH (06:39)
[2020-03-25 07:44] VITALS: BP 146/92; PULSE 63
--- NOTE | 2020-03-25 08:18 | PCM.DCSUM1 ---
<Brendan Ohara - Last Filed: 03/25/20 10:37> Discharge Summary - Hospital Course HPI Initial Comments: Patient is an 84-year-old lady who has presented to the emergency department with a complaint of severe back pain. The patient reports that she has also had some dizziness and lightheadedness. She does have dysuria. She was also found to have a urinary tract infection. The patient also had been incompletely treated as an outpatient for urinary tract infection with the use of amoxicil chacho. The patient has denied fever or chills however she did have a fever in the emergency department. The patient also says that she has been having difficulty walking. She currently lives alone but has family nearby. The patient has been in her usual state of health. Patient has been taking medication for her hypothyroidism as well as dyslipidemia and for her osteoporosis. Diagnosis: Stroke: No - Discharge Data Discharge Date: 03/25/20 (Admit date: 03/22/20) Discharge Disposition: Home, W Home Health Agency 06 Condition: Good - Referral to Home Health Date of Face to Face Encounter: 03/25/20 Reason for Homebound Status: See discharge summary Primary Care Physician: Juan Us MD Skilled Need: See discharge summary - Discharge Diagnosis/Problem(s) (1) Anemia SNOMED Code(s): 369418321 ICD Code: D64.9 - ANEMIA, UNSPECIFIED Status: Chronic Priority: Medium Current Visit: Yes Qualifiers: Anemia type: unspecified type Qualified Code(s): D64.9 - Anemia, unspecified (2) Difficulty walking SNOMED Code(s): 888858150 ICD Code: R26.2 - DIFFICULTY IN WALKING, NOT ELSEWHERE CLASSIFIED Status: Acute Priority: High Current Visit: Yes (3) Fall SNOMED Code(s): 2078527, 523818675 ICD Code: W19.XXXA - UNSPECIFIED FALL, INITIAL ENCOUNTER Status: Acute Priority: High Current Visit: Yes Qualifiers: Encounter type: subsequent encounter Qualified Code(s): W19.XXXD - Unspeci fied fall, subsequent encounter (4) Low back pain SNOMED Code(s): 856299929 ICD Code: M54.5 - LOW BACK PAIN Status: Chronic Priority: High Current Visit: Yes Qualifiers: Chronicity: chronic Back pain laterality: bilateral Sciatica presence: without sciatica Qualified Code(s): M54.5 - Low back pain; G89.29 - Other chronic pain (5) UTI (urinary tract infection) SNOMED Code(s): 75518975 ICD Code: N39.0 - URINARY TRACT INFECTION, SITE NOT SPECIFIED Status: Resolved Priority: High Current Visit: Yes Problem Details: Outpatient treatment failure Qualifiers: Urinary tract infection type: acute cystitis Hematuria presence: without hematuria Qualified Code(s): N30.00 - Acute cystitis without hematuria (6) Chronic kidney disease, stage 3b SNOMED Code(s): 989945534 ICD Code: N18.32 - CHRONIC KIDNEY DISEASE, STAGE 3B Status: Chronic Priority: Medium Current Visit: Yes (7) Compression fracture of lumbar vertebra SNOMED Code(s): 323780172 ICD Code: S32.000A - WEDGE COMPRESSION FRACTURE OF UNSP LUMBAR VERTEBRA, INIT Status: Chronic Priority: High Current Visit: Yes Qualifiers: Encounter type: subsequent encounter Lumbar vertebra fracture level: L1 Fracture healing: with delayed healing (8) Multiple myeloma SNOMED Code(s): 710748037 ICD Code: C90.00 - MULTIPLE MYELOMA NOT HAVING ACHIEVED REMISSION Status: Chronic Priority: Medium Current Visit: No Qualifiers: Multiple myeloma remission status: unspecified Qualified Code(s): C90.00 - Multiple myeloma not having achieved remission - Patient Summary/Data Consults: Consultations 03/22/20 17:58 OT Evaluation and Treatment [CONS] Routine PT Evaluation and Treatment [CONS] Routine 03/23/20 10:27 Consult to Home Health [CONS] Routine 03/24/20 10:28 Consult to Case Management/Windows Security Engineer [CONS] Routine Labs Pending at D/C: None Recommended Follow-up Testing/Procedures: Follow-up with PCP within 7-10 days of discharge, sooner if needed. Consider follow-up with orthopedic human services program specialist after discharge. Consider follow-up with a pain specialist after discharge. Hospital Course: Alem is an 84-year-old female who was admitted primarily due to her inability to ambulate due to back pain and secondary due to a UTI for which she is currently undergoing treatment with amoxicillin. She was started on 1 g IV Rocephin every 24 hours and completed 3 days of treatment. This combined with her amoxicillin before should be enough to cover and she will not be discharged on any antibiotic. Urine was sent for culture and showed no growth after 3 days. She was noted to be anemic and does carry a history of anemia with variable hemoglobins. This did trend up prior to discharge. She was noted to be thrombocytopenic and old records do indicate a history of multiple myeloma. Physical therapy was ordered and did see the patient. They were recommending SNF placement versus home with home health services. Patient ultimately refused plan for SNF placement as she would like to be charged home. She does [place] [facility] [place] [facility] [place] [facility]. She reports there are a few steps to get into her house but she does only live on the main floor and does not go u pstairs or downstairs. She reports she ambulates with a walker. She was utilizing oxycodone and Tylenol for pain with good results. Will discharge on this and she was advised to take Tylenol for minor pain and oxycodone for more severe pain. She was reporting some constipation and was started on Colace here for that. That will be continued on discharge. She will have home health services on discharge. She was advised to follow-up with her primary care provider within 7 to 10 days of discharge, sooner if needed. Recommend PCP explore follow-up with orthopedic human services program specialist and/or paint crew supervisor as patient has multiple prior compression fractures and reported history of multiple myeloma. As noted should be discharged on as needed Tylenol and oxycodone, along with scheduled Colace. She was advised to return the emergency room or contact her primary care provider should symptoms return or worsen. I met personally with Alem to face to discuss her homebound status and need for home health services. She lives in [facility] and does not drive. She lives alone. She has difficulty with ambulation due to her chronic back pain secondary to multiple compression fractures and multiple myeloma. She walks with a walker. She would benefit from home health services including PT for strengthening and gait training, OT for home safety eval and ADL training, INTERMEDIATE CARD TENDER services for assistance with ADLs, and snf services for assistance with medications and monitoring of chronic medical conditions. The services can be monitored by the patient's primary care provider, Dr. Bautista, and adjusted as he sees fit. - Patient Instructions Diet: Usual Diet as Tolerated Activity: As Tolerated Driving: Do Not Drive Notify Provider of: Fever, Increased Pain, Nausea and/or Vomiting Other/Special Instructions: Follow-up with PCP within 7-10 days of discharge, sooner if needed. Suggest follow-up with orthopedic human services program specialist after discharge. Consider follow-up with pain specialist. You completed treatment for your UTI while here. No antibiotic will be precribed at discharge. Continue to work with home therapies as ordered. Resume home medications as directed. You were prescribed a narcotic pain medication called oxycodone and Tylenol for pain. Take the tylenol for more mild pain and the oxycodone for more severe pain. Be sure to take the oxycodone as prescribed and not more often. Take it only when needed. It may make you sleepy or constipated. Try to wean off of it as soon as able. Should symtomps return or worsen contact your primary care provider or return to the Emergency Department. - Discharge Plan *PRESCRIPTION DRUG MONITORING PROGRAM REVIEWED*: No *COPY OF PRESCRIPTION DRUG MONITORING REPORT IN PATIENT AMANDA: No Prescriptions/Med Rec: Docusate Sodium [Colace] 100 mg PO DAILY #5 cap oxyCODONE 5 mg PO Q4H PRN #20 tablet PRN Reason: Pain (Moderate 4-6) Acetaminophen [Tylenol] 650 mg PO Q4H PRN #20 tablet PRN Reason: Pain (Mild 1-3)/fever Home Medications: Home Meds atorvaSTATin [Lipitor] 10 mg PO BEDTIME 09/28/18 [History] Allopurinol [Zyloprim] 100 mg PO BID 03/22/20 [History] Aspirin [Halfprin] 81 mg PO DAILY 03/22/20 [History] Calcitonin (Vale) [Miacalcin Nasal [place]] 1 spray NS DAILY 03/22/20 [History] Calcium Carbonate [Calcium] 500 mg PO DAILY 03/22/20 [History] Ergocalciferol (Vitamin D2) [Vitamin D2] 1.25 mg PO WEEKLY 03/22/20 [History] Levothyroxine [Synthroid] 50 mcg PO DAILY 03/22/20 [History] Acetaminophen [Tylenol] 650 mg PO Q4H PRN #20 tablet 03/25/20 [Rx] Docusate Sodium [Colace] 100 mg PO DAILY #5 cap 03/25/20 [Rx] oxyCODONE 5 mg PO Q4H PRN #20 tablet 03/25/20 [Rx] Oxygen Therapy Mode: Room Air Patient Handouts: Sepsis, Diagnosis, Adult, Urinary Tract Infection, Adult Referrals: Juan Us MD [Primary Care Provider] - 04/04/20 9:30 am (Please follow up with Dr. Us on April 04 at 9:30. ) - Discharge Summary/Plan Comment DC Time >30 min.: Yes (45 mins ) - General Info Date of Service: 03/25/20 Admission Dx/Problem (Free Text: Admission Diagnosis/Problem Admission Diagnosis/Problem Urinary tract infection Functional Status: Reports: Pain Controlled, Tolerating Diet, Ambulating, Urinating. Denies: New Symptoms - Review of Systems General: Reports: Weakness (improved ). Denies: Fever, Fatigue, Malaise, Chills HEENT: Reports: No Symptoms. Denies: Headaches, Sore Throat Pulmonary: Reports: No Symptoms. Denies: Shortness of Breath, Pleuritic Chest Pain, Cough, Sputum, Hemoptysis, Wheezing Cardiovascular: Reports: No Symptoms. Denies: Palpitations, Dyspnea on Exertion, Lightheadedness Gastrointestinal: Reports: Constipation. Denies: Abdominal Pain, Diarrhea, Nausea, Vomiting Genitourinary: Reports: No Symptoms. Denies: Pain Musculoskeletal: Reports: Back Pain (chronic and at baseline ) Skin: Reports: No Symptoms. Denies: Cyanosis Neurological: Reports: Pre-Existing Deficit (2/2 back pain ), Difficulty Walking, Weakness, Gait Disturbance. Denies: Confusion Psychiatric: Reports: No Symptoms - Patient Data Vitals - Most Recent: Last Vital Signs Temp 97.5 F 03/25/20 07:08 Pulse 63 03/25/20 07:08 Resp 20 03/25/20 07:08 BP 146/92 H 03/25/20 07:08 Pulse Ox 96 03/25/20 07:08 Weight - Most Recent: 58.559 kg I&O - Last 24 hours: Intake & Output 03/24/20 03/25/20 03/25/20 22:59 06:59 14:59 Intake Total 1420 300 Output Total 575 1000 Balance 845 -700 ZORAN Results - Last 24 hrs: Microbiology 03/22/20 16:00 Urine Culture - Final Urine, Clean Catch NO GROWTH AFTER 2 DAYS Med Orders - Current: Current Medications Acetaminophen (Tylenol) 650 mg PO Q4H PRN PRN Reason: Pain (Mild 1-3)/fever Last Admin: 03/25/20 03:24 Dose: 650 mg Documented by: Allopurinol (Zyloprim) 100 mg PO BID [facility] Last Admin: 03/24/20 20:15 Dose: 100 mg Documented by: Aspirin (Halfprin) 81 mg PO DAILY [facility] Last Admin: 03/24/20 08:54 Dose: 81 mg Documented by: Calcium Carbonate/Glycine (Tums) 500 mg PO DAILY [facility] Last Admin: 03/24/20 08:55 Dose: 500 mg Documented by: Docusate Sodium (Colace) 100 mg PO BID PRN PRN Reason: Constipation Enoxaparin Sodium (Lovenox) 30 mg SUBCUT DAILY [facility] Last Admin: 03/24/20 08:57 Dose: 30 mg Documented by: Ceftriaxone Sodium 1 gm/ (Sodium Chloride) 100 mls @ 200 mls/hr IV Q24H [facility] Last Admin: 03/24/20 18:00 Dose: 200 mls/hr Documented by: Levothyroxine Sodium (Synthroid) 50 mcg PO ACBRK [facility] Last Admin: 03/25/20 06:39 Dose: 50 mcg Documented by: Calcitonin (Vale) (1 [place] Ptom) 1 spray .XX DAILY [facility] Last Admin: 03/24/20 08:59 Dose: Not Given Documented by: Ergocalciferol ( (Vitamin D2) Ptom) 1.25 mg PO Q7D [facility] Ondansetron HCl (Zofran Odt) 4 mg PO Q4H PRN PRN Reason: nausea, able to take PO Oxycodone HCl (Oxycodone) 5 mg PO Q4H PRN PRN Reason: Pain (moderate 4-6) Last Admin: 03/25/20 03:24 Dose: 5 mg Documented by: Simvastatin (Zocor) 10 mg PO BEDTIME [facility] Last Admin: 03/24/20 20:15 Dose: 10 mg Documented by: Sodium Chloride (Saline Flush) 10 ml FLUSH ASDIRECTED PRN PRN Reason: Keep Vein Open Last Admin: 03/22/20 15:44 Dose: 10 ml Documented by: Temazepam (Restoril) 7.5 mg PO BEDTIME PRN PRN Reason: Sleep Discontinued Medications Sodium Chloride (Normal Saline) 1,000 mls @ 999 mls/hr IV ONETIME [facility] Last Admin: 03/22/20 15:44 Dose: 999 mls/hr Documented by: Ceftriaxone Sodium 1 gm/ (Sodium Chloride) 100 mls @ 200 mls/hr IV ONETIME ONE Stop: 03/22/20 17:14 Last Admin: 03/22/20 17:00 Dose: 200 mls/hr Documented by: Sodium Chloride (Normal Saline) 1,000 mls @ 75 mls/hr IV ASDIRECTED [facility] Last Admin: 03/24/20 00:33 Dose: 75 mls/hr Documented by: - Exam Quality Assessment: Reports: DVT Prophylaxis. Denies: Supplemental Oxygen, Urine Catheter General: Reports: Alert, Oriented, Cooperative, No Acute Distress HEENT: Reports: Pupils Equal, Pupils Reactive, Mucous Membr. Moist/[place] Neck: Reports: Supple, Trachea Midline Lungs: Reports: Clear to Auscultation, Normal Respiratory Effort Cardiovascular: Reports: Regular Rate, Regular Rhythm GI/Abdominal Exam: Normal Bowel Sounds, Soft, Non-Tender, No Distention (Female) Exam: Deferred Rectal (Female) Exam: Deferred Back Exam: Reports: Normal Inspection, Decreased Range of Motion, Paraspinal Tenderness (left side ), Vertebral Tenderness Extremities: Normal Inspection, Normal Range of Motion, Non-Tender, No Pedal Edema, Normal Capillary Refill Skin: Reports: Warm, Dry, Intact Neurological: Reports: No New Focal Deficit Psy/Mental Status: Reports: Alert, Normal Affect, Normal Mood *Q Meaningful Use (DIS) - VTE *Q VTE Mechanical Contraindications *Q: At Risk for Falls <Torin Lindsey - Last Filed: 03/25/20 11:34> Discharge Summary - Referral to Home Health Primary Care Physician: Juan Us MD - Discharge Diagnosis/Problem(s) (1) UTI (urinary tract infection) SNOMED Code(s): 31411692 ICD Code: N39.0 - URINARY TRACT INFECTION, SITE NOT SPECIFIED Status: Resolved Priority: High Current Visit: Yes Problem Details: Outpatient treatment failure Qualifiers: Urinary tract infection type: acute cystitis Hematuria presence: without h ematuria Qualified Code(s): N30.00 - Acute cystitis without hematuria (2) Difficulty walking SNOMED Code(s): 222776296 ICD Code: R26.2 - DIFFICULTY IN WALKING, NOT ELSEWHERE CLASSIFIED Status: Acute Priority: High Current Visit: Yes (3) Fall SNOMED Code(s): 0934535, 985821733 ICD Code: W19.XXXA - UNSPECIFIED FALL, INITIAL ENCOUNTER Status: Acute Priority: High Current Visit: Yes Qualifiers: Encounter type: subsequent encounter Qualified Code(s): W19.XXXD - Unspecified fall, subsequent encounter (4) Low back pain SNOMED Code(s): 756469087 ICD Code: M54.5 - LOW BACK PAIN Status: Chronic Priority: High Current Visit: Yes Qualifiers: Chronicity: chronic Back pain laterality: bilateral Sciatica presence: without sciatica Qualified Code(s): M54.5 - Low back pain; G89.29 - Other chronic pain (5) Compression fracture of lumbar vertebra SNOMED Code(s): 762681056 ICD Code: S32.000A - WEDGE COMPRESSION FRACTURE OF UNSP LUMBAR VERTEBRA, INIT Status: Chronic Priority: High Current Visit: Yes Qualifiers: Encounter type: subsequent encounter Lumbar vertebra fracture level: L1 Fracture healing: with delayed healing (6) Chronic kidney disease, stage 3b SNOMED Code(s): 008294194 ICD Code: N18.32 - CHRONIC KIDNEY DISEASE, STAGE 3B Status: Chronic Priority: Medium Current Visit: Yes (7) Anemia SNOMED Code(s): 339383301 ICD Code: D64.9 - ANEMIA, UNSPECIFIED Status: Chronic Priority: Medium Current Visit: Yes Qualifiers: Anemia type: unspecified type Qualified Code(s): D64.9 - Anemia, unspecified - Patient Summary/Data Consults: Consultations 03/22/20 17:58 OT Evaluation and Treatment [CONS] Routine PT Evaluation and Treatment [CONS] Routine 03/23/20 10:27 Consult to Home Health [CONS] Routine 03/24/20 10:28 Consult to Case Management/Windows Security Engineer [CONS] Routine Hospital Course: I have seen and examined the patient independently of Brendan Ohara PA-C. I hav e reviewed the orders and agree with the plan of care as outlined by him. I have discussed the case with him. Please see orders. - Patient Data Vitals - Most Recent: Last Vital Signs Temp 36.4 C 03/25/20 07:08 Pulse 63 03/25/20 07:08 Resp 20 03/25/20 07:08 BP 146/92 H 03/25/20 07:08 Pulse Ox 96 03/25/20 07:08 I&O - Last 24 hours: Intake & Output 03/24/20 03/25/20 03/25/20 22:59 06:59 14:59 Intake Total 1420 300 120 Output Total 575 1000 Balance 845 -700 120 ZORAN Results - Last 24 hrs: Microbiology 03/22/20 16:00 Urine Culture - Final Urine, Clean Catch NO GROWTH AFTER 2 DAYS Med Orders - Current: Current Medications Acetaminophen (Tylenol) 650 mg PO Q4H PRN PRN Reason: Pain (Mild 1-3)/fever Last Admin: 03/25/20 03:24 Dose: 650 mg Documented by: Allopurinol (Zyloprim) 100 mg PO BID [facility] Last Admin: 03/25/20 08:59 Dose: 100 mg Documented by: Aspirin (Halfprin) 81 mg PO DAILY [facility] Last Admin: 03/25/20 08:59 Dose: 81 mg Documented by: Calcium Carbonate/Glycine (Tums) 500 mg PO DAILY [facility] Last Admin: 03/25/20 08:59 Dose: 500 mg Documented by: Docusate Sodium (Colace) 100 mg PO BID PRN PRN Reason: Constipation Last Admin: 03/25/20 08:59 Dose: 100 mg Documented by: Enoxaparin Sodium (Lovenox) 30 mg SUBCUT DAILY [facility] Last Admin: 03/25/20 09:00 Dose: 30 mg Documented by: Ceftriaxone Sodium 1 gm/ (Sodium Chloride) 100 mls @ 200 mls/hr IV Q24H [facility] Last Admin: 03/24/20 18:00 Dose: 200 mls/hr Documented by: Levothyroxine Sodium (Synthroid) 50 mcg PO ACBRK [facility] Last Admin: 03/25/20 06:39 Dose: 50 mcg Documented by: Calcitonin (Vale) (1 [place] Ptom) 1 spray .XX DAILY [facility] Last Admin: 03/25/20 09:02 Dose: Not Given Documented by: Ergocalciferol ( (Vitamin D2) Ptom) 1.25 mg PO Q7D [facility] Ondansetron HCl (Zofran Odt) 4 mg PO Q4H PRN PRN Reason: nausea, able to take PO Oxycodone HCl (Oxycodone) 5 mg PO Q4H PRN PRN Reason: Pain (moderate 4-6) Last Admin: 03/25/20 03:24 Dose: 5 mg Documented by: Simvastatin (Zocor) 10 mg PO BEDTIME [facility] Last Admin: 03/24/20 20:15 Dose: 10 mg Documented by: Sodium Chloride (Saline Flush) 10 ml FLUSH ASDIRECTED PRN PRN Reason: Keep Vein Open Last Admin: 03/22/20 15:44 Dose: 10 ml Documented by: Temazepam (Restoril) 7.5 mg PO BEDTIME PRN PRN Reason: Sleep Discontinued Medications Sodium Chloride (Normal Saline) 1,000 mls @ 999 mls/hr IV ONETIME [facility] Last Admin: 03/22/20 15:44 Dose: 999 mls/hr Documented by: Ceftriaxone Sodium 1 gm/ (Sodium Chloride) 100 mls @ 200 mls/hr IV ONETIME ONE Stop: 03/22/20 17:14 Last Admin: 03/22/20 17:00 Dose: 200 mls/hr Documented by: Sodium Chloride (Normal Saline) 1,000 mls @ 75 mls/hr IV ASDIRECTED [facility] Last Admin: 03/24/20 00:33 Dose: 75 mls/hr Documented by:
[2020-03-25] MEDS: Aspirin 81 MG Tab.EC PO SCH (08:59)
[2020-03-25] MEDS: Calcium Carbonate 500 MG Tab.Chew PO SCH (08:59)
[2020-03-25] MEDS: Allopurinol 100 MG Tab PO SCH (08:59)
[2020-03-25] MEDS: Enoxaparin 30 MG/0.3 ML Syringe SUBCUT SCH (09:00)
[2020-03-25] MEDS: CALCITONIN SCH (09:02)
[2020-03-29] MEDS ORDERED: ERGOCALCIFEROL PO SCH (09:00)
== END 2020-03-25 11:20 | disposition home health service (06) | DRG 690 ==
LOC: JD.ED 15:00 → JD.MS 17:58
PROVIDERS: ADMIT Internal Medicine; ATTEND Internal Medicine
DX: N30.00 Acute cystitis without hematuria (principal); E03.9 Hypothyroidism, unspecified; W19.XXXA Unspecified fall, initial encounter; D63.1 Anemia in chronic kidney disease; M54.5 Low back pain; R26.2 Difficulty in walking, not elsewhere classified; N18.32 Chronic kidney disease, stage 3b; D69.6 Thrombocytopenia, unspecified; H91.90 Unspecified hearing loss, unspecified ear; H54.7 Unspecified visual loss; E78.00 Pure hypercholesterolemia, unspecified; K59.09 Other constipation; G89.29 Other chronic pain; F32.9 Major depressive disorder, single episode, unspecified; Z98.49 Cataract extraction status, unspecified eye; Z79.82 Long term (current) use of aspirin; Z79.890 Hormone replacement therapy; Z79.899 Other long term (current) drug therapy; Z90.49 Acquired absence of other specified parts of digestive tract; Z90.710 Acquired absence of both cervix and uterus; S32.010G Wedge compression fracture of first lumbar vertebra, subsequent encounter for fracture with delayed healing; W19.XXXD Unspecified fall, subsequent encounter; E78.5 Hyperlipidemia, unspecified; M81.0 Age-related osteoporosis without current pathological fracture; Z87.440 Personal history of urinary (tract) infections; Z85.79 Personal history of other malignant neoplasms of lymphoid, hematopoietic and related tissues; Z20.822 Contact with and (suspected) exposure to COVID-19
CPT/HCPCS: 36415; 72100; 80053; 81001; 82550; 84443; 85025; 86140; 87086; 96365; 99285; J0696; J7030; U0002; 80048; 83735; 97110-GP; 97162-GP; 99222; 99232; 99239; A9270-GY; J1650

== ENCOUNTER 2021-04-13 07:06 | Emergency (ER) | payer MEDICARE, OTHER ==
[2021-04-13 07:25] VITALS: BP 149/78; PULSE 71
[2021-04-13] MEDS ORDERED: Sodium Chloride 0.9% 10 ML Syringe FLUSH PRN (07:38)
[2021-04-13] MEDS ORDERED: Aspirin 81 MG Tab.Chew PO ONE (07:38)
== END 2021-04-13 09:53 | disposition home or self-care (01) ==
LOC: JD.ED 07:06
DX: R07.89 Other chest pain (principal); M54.50 Low back pain, unspecified; E78.00 Pure hypercholesterolemia, unspecified; E03.9 Hypothyroidism, unspecified; Z79.899 Other long term (current) drug therapy
CPT/HCPCS: 36415; 71045; 71045-26; 80053; 83690; 84484; 85025; 86140; 93005; 93010; 99285; 99285-25; A9270-GY

== ENCOUNTER 2021-10-25 07:49 | Day surgery (SDC) | payer MEDICARE, OTHER ==
[~2021-10-25 07:49] MED LIST: Lactated Ringers 1,000 ML IV SCH; Lidocaine 1%/Sod Bicarbonate in NS 8.4% 1 ML Syringe IDERM PRN; Sodium Chloride 0.9% 10 ML Syringe FLUSH PRN; Sodium Chloride 0.9% 10 ML Syringe FLUSH SCH
[2021-10-25] MEDS ORDERED: Propofol 200 MG/20 ML SDV ONE ×2 (09:40→10:20)
[2021-10-25] MEDS ORDERED: Lidocaine 1% 4 ML ONE (09:40)
[2021-10-25 11:51] VITALS: BP 128/75; PULSE 77
== END 2021-10-25 11:45 | disposition home or self-care (01) ==
LOC: JD.SDS 07:49
PROVIDERS: ATTEND Surgery
DX: D12.0 Benign neoplasm of cecum (principal); D12.4 Benign neoplasm of descending colon; D12.3 Benign neoplasm of transverse colon; K29.50 Unspecified chronic gastritis without bleeding; B96.81 Helicobacter pylori [H. pylori] as the cause of diseases classified elsewhere; K64.8 Other hemorrhoids; K57.30 Diverticulosis of large intestine without perforation or abscess without bleeding; K44.9 Diaphragmatic hernia without obstruction or gangrene; K21.9 Gastro-esophageal reflux disease without esophagitis; K22.89 Other specified disease of esophagus; I10 Essential (primary) hypertension; E78.00 Pure hypercholesterolemia, unspecified; E03.9 Hypothyroidism, unspecified; F32.A Depression, unspecified; C90.00 Multiple myeloma not having achieved remission; Z79.899 Other long term (current) drug therapy; Z79.890 Hormone replacement therapy; Z90.49 Acquired absence of other specified parts of digestive tract; Z90.710 Acquired absence of both cervix and uterus; Z79.02 Long term (current) use of antithrombotics/antiplatelets; Z79.51 Long term (current) use of inhaled steroids
CPT/HCPCS: 43239; 45380; J2704; J7120

== ENCOUNTER 2023-05-15 14:41 | Inpatient (IN) | payer OTHER, MEDICARE ==
[2023-05-15] MEDS: HYDROmorphone 0.5 MG/0.5 ML Syringe IVPUSH ONE ×2 (15:11→16:01)
[2023-05-15] MEDS: Ondansetron 4 MG/2 ML SDV IVPUSH ONE (15:12)
[2023-05-15] MEDS: Cyclobenzaprine 10 MG Tab PO ONE (16:00)
[2023-05-15 16:43] LABS: BASOPHILS ABSOLUTE AUTO 0.1 K/mm3 (0.0-0.2); BASOPHILS PERCENT AUTO 0.3 % (0.0-1.0); EOSINOPHILS PERCENT AUTO 0.1 % (0.0-6.0); HEMATOCRIT 39.1 % (37.0-47.0); HEMOGLOBIN 12.5 gm/dl (12.0-16.0); IMMATURE GRAN PERCENT AUTO 0.5 % (0.0-0.4); LYMPHOCYTES ABSOLUTE AUTO 1.5 K/mm3 (1.0-4.8); LYMPHOCYTES PERCENT AUTO 7.9 % (24.0-44.0); MEAN CORPUSCULAR HEMOGLOBIN 30.1 pg (28.0-32.0); MEAN CORPUSCULAR VOLUME 94.2 fl (83.0-99.0); MEAN PLATELET VOLUME 10.4 fl (9.4-12.3); MONOCYTES ABSOLUTE AUTO 0.7 K/mm3 (0.0-0.8); MONOCYTES PERCENT AUTO 3.5 % (0.0-8.0); NEUTROPHILS ABSOLUTE AUTO 16.9 K/mm3 (1.8-7.7); NEUTROPHILS PERCENT AUTO 87.7 % (41.0-71.0); PLATELET COUNT,PLT 321 K/mm3 (150-400); RED BLOOD CELL COUNT 4.15 M/mm3 (4.10-5.30); WHITE BLOOD CELL COUNT,WBC 19.23 K/mm3 (3.9-11.3)
[2023-05-15 17:00] LABS: A/G RATIO 0.8 (1-2); ALBUMIN 3.4 g/dl (3.4-5.0); ANION GAP 16.3 (5-15); BILIRUBIN TOTAL 0.3 mg/dL (0.2-1.0); BUN/CREATININE RATIO 23.3 (14-18); CALCIUM 9.2 mg/dL (8.5-10.1); CREATININE 1.8 mg/dL (0.55-1.02); EST CRCL DRUG DOSING (CG) 16.11 mL/min; POTASSIUM,K 4.3 mEq/L (3.5-5.1); PROTEIN TOTAL,TP 7.8 g/dl (6.4-8.2)
[2023-05-15] MEDS ORDERED: Sodium Chloride 0.9% 10 ML Syringe FLUSH PRN (17:21)
[2023-05-15] MEDS ORDERED: Ondansetron 4 MG/2 ML SDV IV PRN (17:21)
[2023-05-15] MEDS ORDERED: Ondansetron 4 MG Tab.DIS PO PRN (17:21)
[2023-05-15] MEDS ORDERED: Polyethylene Glycol 3350 Powder 17 GM Packet PO PRN (17:21)
[2023-05-15] MEDS ORDERED: Metoprolol Tartrate 25 MG Tab PO SCH ×2 (17:30→21:15)
[2023-05-15] MEDS: Morphine 2 MG/ML SYRINGE IVPUSH PRN (18:29)
[2023-05-15] MEDS: Heparin Sodium 5,000 Units/ML Vial SUBCUT SCH (21:08)
[2023-05-15] MEDS: Metoprolol Tartrate 25 MG Tab PO SCH (21:22)
[2023-05-16 05:02] LABS: BASOPHILS PERCENT AUTO 0.4 % (0.0-1.0); EOSINOPHILS PERCENT AUTO 0.3 % (0.0-6.0); HEMATOCRIT 34.5 % (37.0-47.0); IMMATURE GRAN ABSOLUTE AUTO 0.04 K/mm3 (0.00-0.05); IMMATURE GRAN PERCENT AUTO 0.4 % (0.0-0.4); LYMPHOCYTES ABSOLUTE AUTO 2.8 K/mm3 (1.0-4.8); LYMPHOCYTES PERCENT AUTO 27.8 % (24.0-44.0); MEAN CORPUSCULAR HEMOGLOBIN 30.4 pg (28.0-32.0); MEAN CORPUSCULAR HGB CONC 31.9 g/dl (32.0-36.0); MEAN CORPUSCULAR VOLUME 95.3 fl (83.0-99.0); MEAN PLATELET VOLUME 10.2 fl (9.4-12.3); MONOCYTES ABSOLUTE AUTO 0.9 K/mm3 (0.0-0.8); MONOCYTES PERCENT AUTO 9.2 % (0.0-8.0); NEUTROPHILS ABSOLUTE AUTO 6.2 K/mm3 (1.8-7.7); NEUTROPHILS PERCENT AUTO 61.9 % (41.0-71.0); PLATELET COUNT,PLT 282 K/mm3 (150-400); RED BLOOD CELL COUNT 3.62 M/mm3 (4.10-5.30); WHITE BLOOD CELL COUNT,WBC 10.01 K/mm3 (3.9-11.3)
[2023-05-16 05:20] LABS: ANION GAP 14.7 (5-15); BUN/CREATININE RATIO 22.2 (14-18); CREATININE 1.8 mg/dL (0.55-1.02); EST CRCL DRUG DOSING (CG) 16.11 mL/min; POTASSIUM,K 4.7 mEq/L (3.5-5.1)
[2023-05-16] MEDS ORDERED: Metoprolol Tartrate 25 MG Tab PO SCH (09:00)
[2023-05-16] MEDS ORDERED: fentaNYL 100 MCG/2 ML SDV ONE (09:11)
[2023-05-16] MEDS ORDERED: Propofol 200 MG/20 ML SDV ONE (09:11)
[2023-05-16] MEDS ORDERED: Ketamine 200 MG/20 ML MDV ONE (09:12)
[2023-05-16] MEDS ORDERED: Midazolam 1 MG/ML 2 ML SDV ONE (09:12)
[2023-05-16] MEDS ORDERED: Morphine PF 10 MG/10 ML SDV ONE (09:14)
[2023-05-16] MEDS ORDERED: ceFAZolin 2 GM Vial ONE (10:21)
[2023-05-16] MEDS ORDERED: Lactated Ringers 1,000 ML ONE (10:40)
[2023-05-16] MEDS ORDERED: ePHEDrine 50 MG/ML SDV ONE (10:43)
[2023-05-16] MEDS ORDERED: Phenylephrine 1% 10 MG/ML SDV ONE (11:45)
[2023-05-16] MEDS: Bupivacaine 0.25% 10 ML SDV ONE (12:11)
[2023-05-16] MEDS: Lactated Ringers 1,000 ML IV ONE (13:49)
[2023-05-16] MEDS: Sodium Chloride 0.9% 1,000 ML ONE (14:15)
[2023-05-16 14:19] LABS: BASOPHILS ABSOLUTE AUTO 0.1 K/mm3 (0.0-0.2); BASOPHILS PERCENT AUTO 0.5 % (0.0-1.0); EOSINOPHILS PERCENT AUTO 0.1 % (0.0-6.0); HEMATOCRIT 33.5 % (37.0-47.0); HEMOGLOBIN 10.5 gm/dl (12.0-16.0); IMMATURE GRAN ABSOLUTE AUTO 0.11 K/mm3 (0.00-0.05); IMMATURE GRAN PERCENT AUTO 0.7 % (0.0-0.4); LYMPHOCYTES ABSOLUTE AUTO 2.9 K/mm3 (1.0-4.8); LYMPHOCYTES PERCENT AUTO 18.6 % (24.0-44.0); MEAN CORPUSCULAR HEMOGLOBIN 29.6 pg (28.0-32.0); MEAN CORPUSCULAR HGB CONC 31.3 g/dl (32.0-36.0); MEAN CORPUSCULAR VOLUME 94.4 fl (83.0-99.0); MEAN PLATELET VOLUME 10.1 fl (9.4-12.3); MONOCYTES ABSOLUTE AUTO 1.2 K/mm3 (0.0-0.8); MONOCYTES PERCENT AUTO 7.7 % (0.0-8.0); NEUTROPHILS ABSOLUTE AUTO 11.2 K/mm3 (1.8-7.7); NEUTROPHILS PERCENT AUTO 72.4 % (41.0-71.0); PLATELET COUNT,PLT 232 K/mm3 (150-400); RED BLOOD CELL COUNT 3.55 M/mm3 (4.10-5.30)
[2023-05-16] MEDS: Acetaminophen/HYDROcodone 325-5 MG Tab PO PRN (16:20)
[2023-05-16] MEDS: Lactated Ringers 1,000 ML IV SCH ×2 (18:08→19:37)
[2023-05-16] MEDS: Phenylephrine 10 MG in Sodium Chloride 0.9% 99 ML IV SCH (19:36)
[2023-05-17 00:20] LABS: APPEARANCE,URINE CLOUDY (Clear); BILIRUBIN,URINE NEGATIVE (Negative); COLOR,URINE YELLOW (Yellow); GLUCOSE,URINE NEGATIVE (Negative); KETONES,URINE NEGATIVE (Negative); LEUKOCYTE ESTERASE,URINE 1+ (Negative); NITRITE,URINE NEGATIVE (Negative); OCCULT BLOOD,URINE 2+ (Negative); PROTEIN,URINE 3+ (Negative); UROBILINOGEN,URINE 0.2 (0.2-1.0)
[2023-05-17 00:41] LABS: EPITHELIAL CELLS,URINE 0-5 /hpf (0-5); WBC CLUMPS,URINE FEW /hpf (NOT SEEN); WBC,URINE 50-75 /hpf (0-5)
[2023-05-17 00:42] LABS: BACTERIA,URINE FEW /hpf (FEW); HYALINE CASTS,URINE 0-5 /lpf (0-5); MUCUS,URINE NOT SEEN /hpf (FEW)
[2023-05-17 04:48] LABS: BASOPHILS ABSOLUTE AUTO 0.1 K/mm3 (0.0-0.2); BASOPHILS PERCENT AUTO 0.4 % (0.0-1.0); EOSINOPHILS PERCENT AUTO 0.1 % (0.0-6.0); HEMATOCRIT 31.9 % (37.0-47.0); HEMOGLOBIN 10.1 gm/dl (12.0-16.0); IMMATURE GRAN ABSOLUTE AUTO 0.07 K/mm3 (0.00-0.05); IMMATURE GRAN PERCENT AUTO 0.5 % (0.0-0.4); LYMPHOCYTES ABSOLUTE AUTO 2.1 K/mm3 (1.0-4.8); LYMPHOCYTES PERCENT AUTO 14.5 % (24.0-44.0); MEAN CORPUSCULAR HEMOGLOBIN 30.6 pg (28.0-32.0); MEAN CORPUSCULAR HGB CONC 31.7 g/dl (32.0-36.0); MEAN CORPUSCULAR VOLUME 96.7 fl (83.0-99.0); MONOCYTES ABSOLUTE AUTO 1.1 K/mm3 (0.0-0.8); MONOCYTES PERCENT AUTO 7.3 % (0.0-8.0); NEUTROPHILS ABSOLUTE AUTO 11.2 K/mm3 (1.8-7.7); NEUTROPHILS PERCENT AUTO 77.2 % (41.0-71.0); PLATELET COUNT,PLT 255 K/mm3 (150-400); WHITE BLOOD CELL COUNT,WBC 14.48 K/mm3 (3.9-11.3)
[2023-05-17 05:20] LABS: ANION GAP 13.7 (5-15); BUN/CREATININE RATIO 17.1 (14-18); CALCIUM 8.5 mg/dL (8.5-10.1); CREATININE 1.7 mg/dL (0.55-1.02); EST CRCL DRUG DOSING (CG) 17.06 mL/min; POTASSIUM,K 4.7 mEq/L (3.5-5.1)
[2023-05-17] MEDS: Lactated Ringers 1,000 ML IV ONE (09:11)
[2023-05-18 05:35] LABS: ANION GAP 13.2 (5-15); BUN/CREATININE RATIO 17.5 (14-18); CALCIUM 8.5 mg/dL (8.5-10.1); CREATININE 1.6 mg/dL (0.55-1.02); EST CRCL DRUG DOSING (CG) 18.13 mL/min; POTASSIUM,K 4.2 mEq/L (3.5-5.1)
[2023-05-18 05:48] LABS: BASOPHILS ABSOLUTE AUTO 0.1 K/mm3 (0.0-0.2); BASOPHILS PERCENT AUTO 0.6 % (0.0-1.0); EOSINOPHILS ABSOLUTE AUTO 0.1 K/mm3 (0.0-0.4); EOSINOPHILS PERCENT AUTO 0.9 % (0.0-6.0); HEMATOCRIT 28.5 % (37.0-47.0); HEMOGLOBIN 9.2 gm/dl (12.0-16.0); IMMATURE GRAN ABSOLUTE AUTO 0.06 K/mm3 (0.00-0.05); IMMATURE GRAN PERCENT AUTO 0.5 % (0.0-0.4); LYMPHOCYTES ABSOLUTE AUTO 2.7 K/mm3 (1.0-4.8); LYMPHOCYTES PERCENT AUTO 21.9 % (24.0-44.0); MEAN CORPUSCULAR HEMOGLOBIN 30.6 pg (28.0-32.0); MEAN CORPUSCULAR HGB CONC 32.3 g/dl (32.0-36.0); MEAN CORPUSCULAR VOLUME 94.7 fl (83.0-99.0); MEAN PLATELET VOLUME 10.9 fl (9.4-12.3); MONOCYTES ABSOLUTE AUTO 0.8 K/mm3 (0.0-0.8); MONOCYTES PERCENT AUTO 6.8 % (0.0-8.0); NEUTROPHILS ABSOLUTE AUTO 8.6 K/mm3 (1.8-7.7); NEUTROPHILS PERCENT AUTO 69.3 % (41.0-71.0); PLATELET COUNT,PLT 253 K/mm3 (150-400); RED BLOOD CELL COUNT 3.01 M/mm3 (4.10-5.30); WHITE BLOOD CELL COUNT,WBC 12.37 K/mm3 (3.9-11.3)
[2023-05-18] MEDS: Docusate Sodium 100 MG Cap PO PRN (08:16)
[2023-05-19] MEDS: Acetaminophen 325 MG Tab PO PRN (20:31)
[2023-05-20 05:36] LABS: BASOPHILS ABSOLUTE AUTO 0.1 K/mm3 (0.0-0.2); BASOPHILS PERCENT AUTO 0.6 % (0.0-1.0); EOSINOPHILS ABSOLUTE AUTO 0.3 K/mm3 (0.0-0.4); EOSINOPHILS PERCENT AUTO 2.9 % (0.0-6.0); HEMATOCRIT 27.3 % (37.0-47.0); IMMATURE GRAN ABSOLUTE AUTO 0.07 K/mm3 (0.00-0.05); IMMATURE GRAN PERCENT AUTO 0.7 % (0.0-0.4); LYMPHOCYTES ABSOLUTE AUTO 2.3 K/mm3 (1.0-4.8); LYMPHOCYTES PERCENT AUTO 23.8 % (24.0-44.0); MEAN CORPUSCULAR HEMOGLOBIN 30.6 pg (28.0-32.0); MEAN CORPUSCULAR VOLUME 92.9 fl (83.0-99.0); MEAN PLATELET VOLUME 10.4 fl (9.4-12.3); MONOCYTES ABSOLUTE AUTO 0.7 K/mm3 (0.0-0.8); MONOCYTES PERCENT AUTO 7.8 % (0.0-8.0); NEUTROPHILS ABSOLUTE AUTO 6.1 K/mm3 (1.8-7.7); NEUTROPHILS PERCENT AUTO 64.2 % (41.0-71.0); PLATELET COUNT,PLT 274 K/mm3 (150-400); RED BLOOD CELL COUNT 2.94 M/mm3 (4.10-5.30); WHITE BLOOD CELL COUNT,WBC 9.45 K/mm3 (3.9-11.3)
[2023-05-20 05:54] LABS: ANION GAP 12.9 (5-15); CALCIUM 8.4 mg/dL (8.5-10.1); CREATININE 1.5 mg/dL (0.55-1.02); EST CRCL DRUG DOSING (CG) 19.34 mL/min; POTASSIUM,K 3.9 mEq/L (3.5-5.1)
[2023-05-20] MEDS: Docusate Sodium 100 MG Cap PO SCH (11:35)
[2023-05-20] MEDS: Polyethylene Glycol 3350 Powder 17 GM Packet PO SCH (11:35)
[2023-05-21 09:32] LABS: CORONAVIRUS COVID-19 NAA NEGATIVE (NEGATIVE); INFLUENZA A NAA NEGATIVE (NEGATIVE); RESPIRATORY SYNCYTIAL VIR NAA NEGATIVE (NEGATIVE)
[2023-05-21 13:50] VITALS: BP 120/67; PULSE 80
== END 2023-05-21 13:10 | DRG 482 ==
LOC: JD.ED 14:41 → JD.MS 17:21 → JD.ICU 05-16 19:55
PROVIDERS: ADMIT Hospitalist; ATTEND Internal Medicine
PROC: 0T9B70Z Drainage of Bladder with Drainage Device, Via Natural or Artificial Opening (ICD-10-PCS; 2023-05-15)
PROC: 0QH804Z Insertion of Internal Fixation Device into Right Femoral Shaft, Open Approach (ICD-10-PCS; principal; 2023-05-16 10:15)
DX: S72.301A Unspecified fracture of shaft of right femur, initial encounter for closed fracture (principal); H91.90 Unspecified hearing loss, unspecified ear; E78.00 Pure hypercholesterolemia, unspecified; M19.90 Unspecified osteoarthritis, unspecified site; E03.9 Hypothyroidism, unspecified; F32.A Depression, unspecified; D47.2 Monoclonal gammopathy; Z66 Do not resuscitate; I95.2 Hypotension due to drugs; T41.45XA Adverse effect of unspecified anesthetic, initial encounter; R33.9 Retention of urine, unspecified; N18.32 Chronic kidney disease, stage 3b; I12.9 Hypertensive chronic kidney disease with stage 1 through stage 4 chronic kidney disease, or unspecified chronic kidney disease; Z79.82 Long term (current) use of aspirin; Z79.899 Other long term (current) drug therapy; Z86.16 Personal history of COVID-19; Z90.49 Acquired absence of other specified parts of digestive tract; Z93.1 Gastrostomy status; Z98.49 Cataract extraction status, unspecified eye; Z90.710 Acquired absence of both cervix and uterus; W19.XXXA Unspecified fall, initial encounter; Z90.722 Acquired absence of ovaries, bilateral
CPT/HCPCS: 01210; 0241U; 36415; 51798; 73502-26-RT; 73502-RT; 73552-26-RT; 73552-RT; 76000; 76000-26; 80048; 80053; 81001; 85025; 87641; 96374; 96375; 96376; 97116-GP; 97162-GP; 97530-GP; 99100; 99140; 99222; 99231; 99232; 99233; 99284; 99285-25; A9270-GY; C1713; C1758; J0690; J1170; J1644; J2250; J2270; J2274; J2371; J2405; J2704; J3010; J3490; J7030; J7120

== ENCOUNTER 2023-08-06 14:14 | Emergency (ER) | payer MEDICARE, OTHER ==
[2023-08-06] MEDS: Sodium Chloride 0.9% 1,000 ML IV ONE (16:03)
[2023-08-06 16:43] LABS: BASOPHILS PERCENT AUTO 0.1 % (0.0-1.0); HEMATOCRIT 29.2 % (37.0-47.0); HEMOGLOBIN 9.6 gm/dl (12.0-16.0); IMMATURE GRAN ABSOLUTE AUTO 0.16 K/mm3 (0.00-0.05); IMMATURE GRAN PERCENT AUTO 0.6 % (0.0-0.4); LYMPHOCYTES ABSOLUTE AUTO 1.2 K/mm3 (1.0-4.8); LYMPHOCYTES PERCENT AUTO 4.8 % (24.0-44.0); MEAN CORPUSCULAR HEMOGLOBIN 31.1 pg (28.0-32.0); MEAN CORPUSCULAR HGB CONC 32.9 g/dl (32.0-36.0); MEAN CORPUSCULAR VOLUME 94.5 fl (83.0-99.0); MEAN PLATELET VOLUME 9.9 fl (9.4-12.3); MONOCYTES ABSOLUTE AUTO 0.7 K/mm3 (0.0-0.8); MONOCYTES PERCENT AUTO 2.9 % (0.0-8.0); NEUTROPHILS ABSOLUTE AUTO 22.7 K/mm3 (1.8-7.7); NEUTROPHILS PERCENT AUTO 91.6 % (41.0-71.0); PLATELET COUNT,PLT 568 K/mm3 (150-400); RED BLOOD CELL COUNT 3.09 M/mm3 (4.10-5.30); WHITE BLOOD CELL COUNT,WBC 24.76 K/mm3 (3.9-11.3)
[2023-08-06 17:00] LABS: INR 1.12; PROTHROMBIN TIME 11.9 SECONDS (9.7-12.0)
[2023-08-06 17:01] LABS: PTT,PARTIAL THROMBOPLSTIN TIME 38.4 SECONDS (21.7-31.4)
[2023-08-06 17:04] LABS: A/G RATIO 0.5 (1-2); ALBUMIN 2.1 g/dl (3.4-5.0); ANION GAP 24.9 (5-15); BILIRUBIN TOTAL 0.2 mg/dL (0.2-1.0); BUN/CREATININE RATIO 14.1 (14-18); EST CRCL DRUG DOSING (CG) 4.07 mL/min; POTASSIUM,K 5.9 mEq/L (3.5-5.1); PROTEIN TOTAL,TP 6.8 g/dl (6.4-8.2)
[2023-08-06 17:12] LABS: APPEARANCE,URINE CLEAR (Clear); BILIRUBIN,URINE NEGATIVE (Negative); COLOR,URINE YELLOW (Yellow); GLUCOSE,URINE NEGATIVE (Negative); KETONES,URINE NEGATIVE (Negative); LEUKOCYTE ESTERASE,URINE TRACE (Negative); NITRITE,URINE NEGATIVE (Negative); OCCULT BLOOD,URINE 3+ (Negative); PROTEIN,URINE 3+ (Negative); UROBILINOGEN,URINE 0.2 (0.2-1.0)
[2023-08-06 17:21] LABS: BACTERIA,URINE MODERATE /hpf (FEW); HYALINE CASTS,URINE 0-5 /lpf (0-5); MUCUS,URINE FEW /hpf (FEW); RBC,URINE >100 /hpf (0-5)
[2023-08-06] MEDS: Sodium Bicarbonate 150 MEQ in Dextrose 5% in Water 1,000 ML IV SCH (18:25)
[2023-08-06] MEDS: cefTRIAXone 1 GM in Sodium Chloride 0.9% 100 ML IV ONE (19:31)
[2023-08-06] MEDS: Furosemide 40 MG/4 ML VIAL IVPUSH ONE (19:33)
[2023-08-06] MEDS: 50% Dextrose in Water 50 ML Syringe IVPUSH ONE (19:58)
[2023-08-06 20:12] VITALS: BP 107/58; PULSE 90
[2023-08-07] MEDS ORDERED: Insulin NPH/Insulin Regular,Human 70-30 100 Units/ML 10 ML Vial SUBCUT SCH (06:00)
== END 2023-08-06 21:00 ==
LOC: JD.ED 14:14
DX: N17.9 Acute kidney failure, unspecified (principal); J90 Pleural effusion, not elsewhere classified; E03.9 Hypothyroidism, unspecified; E78.00 Pure hypercholesterolemia, unspecified; I10 Essential (primary) hypertension; Z79.01 Long term (current) use of anticoagulants; Z79.899 Other long term (current) drug therapy
CPT/HCPCS: 36415; 51702; 70450; 71045; 80053; 81001; 83880; 84100; 84484; 85025; 85610; 85730; 87086; 93005; 96361; 96365; 96366; 96368; 96375; 99285; C1758; J0696; J1940; J3490; J7030; J7060; 93010; 99284